=== PATIENT | female | born 1970 | race Caucasian/White ===

== ENCOUNTER 2018-06-07 20:45 | Emergency (ER) | payer OTHER ==
[~2018-06-07] VITALS: Ht 165.1 cm; Wt 98.9 kg
--- OUTSIDE RECORDS SUMMARY | ~2018-06-07 | XMS | Encounter Summary ---
Demographics + + + | Address | [address] | | | [place] [address] | + + + | Home Phone | | + + + | Preferred Language | Unknown | + + + | Marital Status | Unknown | + + + | Christianity Affiliation | Unknown | + + + | Race | Unknown | + + + | Ethnic Group | Unknown | + + + Author + + + | Author | [facility] | + + + | Organization | [facility] | + + + | Address | Unknown | + + + | Phone | Unavailable | + + + Support + + +---------+ + | Name | Relationship | Address | Phone | + + +---------+ + | Tereso Dominguez | ECON | Unknown | | + + +---------+ + | Daniel Ken | ECON | Unknown | | + + +---------+ + | Serina Ken | ECON | Unknown | | + + +---------+ + Care Team Providers + +------+ + | Care Whey Department Operator Name | Role | Phone | + +------+ + | William Starr MD | PCP | | + +------+ + Reason for Visit MRI/CAT Scan (Routine) + +--------+ + + + + | Status | Reason | Specialty | Diagnoses / | Referred By | Referred To | | | | | Procedures | Contact | Contact | + +--------+ + + + + | Pending | | Radiology | Diagnoses | See, | | | Review | | | Pain | Medical | | | | | | Procedures | Record | | | | | | MRI lumbar | | | | | | | spine with | | | | | | | and without | | | | | | | contrast | | | + +--------+ + + + + Encounter Details +--------+ + + + + | Date | Type | Department | Care Team | Description | +--------+ + + + + | 06/02/ | Hospital | [facility] | See, Medical | Pain | | 2018 | Encounter | [facility] | Record | | | | | RADIOLOGY [address] | | | | | [address] | | | | | | [place] [address] | | | | | | [phone] | | | +--------+ + + + + Social History + +-------+ +--------+------+ | Tobacco Use | Types | Packs/Day | Years | Date | | | | | Used | | + +-------+ +--------+------+ | Never Smoker | | | | | + +-------+ +--------+------+ + +---+---+---+ | Smokeless Tobacco: | | | | | Never Used | | | | + +---+---+---+ + + +---------+ + | Alcohol Use | Drinks/We | oz/Week | Comments | | | ek | | | + + +---------+ + | Yes | | | social | + + +---------+ + + + + | Sex Assigned at | Date Recorded | | | | + + + | Not on file | | + + + as of this encounter Medications at Time of Discharge + + +---------+---------+ + + | Medication | Sig. | Disp. | Refills | Start | End Date | | | | | | Date | | + + +---------+---------+ + + | celecoxib | Take 1 capsule by | 40 | 3 | 04/03/20 | | | (CELEBREX) 100 MG | mouth 2 (two) times | capsule | | 18 | | | capsuleIndications: | daily. | | | | | | Multiple sclerosis | | | | | | | (HCC) | | | | | | + + +---------+---------+ + + | Cholecalciferol | Take 2,000 Units by | | | | | | (VITAMIN D) 2000 | mouth daily. | | | | | | UNIT tablet | | | | | | + + +---------+---------+ + + | glatiramer acetate | INJECT 1 SYRINGE | 12 | 5 | 04/03/20 | | | (COPAXONE) 40 MG/ML | (40MG) | Syringe | | 18 | | | | SUBCUTANEOUSLY THREE | | | | | | injectionIndications | TIMES PER WEEK | | | | | | : Multiple sclerosis | -REFRIGERATE DO NOT | | | | | | ([facility]) | FREEZE | | | | | + + +---------+---------+ + + | levothyroxine | Take 25 mcg by mouth | | | 06/19/20 | | | (SYNTHROID) 25 MCG | daily. | | | 17 | | | tablet | | | | | | + + +---------+---------+ + + | losartan (COZAAR) | Take 25 mg by mouth | | | 06/29/20 | | | 25 MG tablet | daily. | | | 17 | | + + +---------+---------+ + + | omeprazole | Take 1 capsule by | 30 | 5 | 05/28/20 | | | (PRILOSEC) 20 MG | mouth every morning | capsule | | 18 | 9 | | capsule | before breakfast. | | | | | + + +---------+---------+ + + | ondansetron | Take 4 mg by mouth | | | | | | (ZOFRAN) 4 MG tablet | as needed for | | | | | | | Nausea. | | | | | + + +---------+---------+ + + | simvastatin | Take 20 mg by mouth | | | 12/22/19 | | | (ZOCOR) 20 MG tablet | daily. | | | 15 | | + + +---------+---------+ + + | tiZANidine | take 1 tablet by | 60 | 5 | 01/29/20 | | | (ZANAFLEX) 4 MG | mouth twice a day | tablet | | 18 | | | tablet | | | | | | + + +---------+---------+ + + | traZODone | Take 1 tablet by | 30 | 5 | 05/28/20 | | | (DESYREL) 50 MG | mouth nightly for 30 | tablet | | 18 | 8 | | tablet | days. | | | | | + + +---------+---------+ + + as of this encounter Plan of Treatment +--------+---------+ + + + | Date | Type | Specialty | Care Team | Description | +--------+---------+ + + + | 12/08/ | Office | Neurology | Robel John, | | | 2019 | Visit | | MD Ben Dominguez | | | | | | [place] | | | | | | [address] | | | | | | | | +--------+---------+ + + + as of this encounter Procedures + +--------+ + + + | Procedure Name | Priori | Date/Time | Associated Diagnosis | Comments | | | ty | | | | + +--------+ + + + | MRI LUMBAR SPINE W | Routin | 05/07/2018 | Pain | Results for this | | WO CONTRAST | e | 10:44 PM | | procedure are in the | | | | PDT | | results section. | + +--------+ + + + in this encounter Results MRI lumbar spine with and without contrast (05/07/2018 10:44 PM) + + + | Narrative | Performed At | + + + | This is a non-reportable procedure without a radiologist report and | [facility] | | is used for image storage only | RADIOLOGY | + + + + + + + + | Performing | Address | City/State/Zipcode | Phone Number | | Organization | | | | + + + + + | [facility] | [address] | [place] [address] | | + + + + + in this encounter Visit Diagnoses + + | Diagnosis | + + | Pain | + + | Generalized pain | + +"
--- OUTSIDE RECORDS SUMMARY | ~2018-06-07 | XMS | Encounter Summary ---
Demographics + + + | Address | [address] | | | [place] [address] | + + + | Home Phone | | + + + | Preferred Language | Unknown | + + + | Marital Status | Unknown | + + + | Restorationism Affiliation | Unknown | + + + | Race | Unknown | + + + | Ethnic Group | Unknown | + + + Author + + + | Author | [facility] | + + + | Organization | [facility] | + + + | Address | [...] Team Providers + +------+ + | Care Repossession Agent Name | Role | Phone | + +------+ + | William Starr MD | PCP | | + +------+ + Reason for Visit +--------+ + | Reason | Comments | +--------+ + | Other | Scheduling | +--------+ + Encounter Details +--------+ + + + + | Date | Type | Department | Care Team | Description | +--------+ + + + + | 03/31/ | Telephone | Jerry | Deandre Leonardo, | Other (Scheduling) | | 2018 | | [facility] | [place] | | | | | [address] | | | | | | [place], [place] | | | | | | [address] | | | | | | [phone] | | | +--------+ + + + [...] + + + as of this encounter Plan of Treatment +--------+---------+ + + + | Date | Type | Specialty | Care Team | Description | +--------+---------+ + + + | 12/08/ | Office | Neurology | Robel John, | | | 2019 | Visit | | MD Ben Dominguez | | | | | | [place] | | | | | | [address] | | | | | | | | +--------+---------+ + + + as of this encounter Visit Diagnoses Not on filein this encounter"
--- OUTSIDE RECORDS SUMMARY | ~2018-06-07 | XMS | Encounter Summary ---
Demographics + + + | Address | [address] | | | [place] [address] | + + + | Home Phone | | + + + | Preferred Language | Unknown | + + + | Marital Status | Unknown | + + + | Muslim Affiliation | Unknown | + + + | Race | Unknown | + + + | Ethnic Group | Unknown | + + + Author + + + | Author | [facility] | + + + | Organization | [facility] | + + + | Address | [...] Team Providers + +------+ + | Care Acoustical Installer Name | Role | Phone | + +------+ + | William Starr MD | PCP | | + +------+ + Reason for Referral MRI/CAT Scan (Routine) + +--------+ + + + + | Status | Reason | Specialty | Diagnoses / | Referred By | Referred To | | | | | Procedures | Contact | Contact | + +--------+ + + + + | Authorized | | | Diagnoses | [address] | [address] | | | | | Multiple | MD Robel | [facility] | | | | | sclerosis | [address] | | | | | ([facility]) | [address]als | [address] | | | | | Procedures | Drive | [place], [place] | | | | | MRI brain | [place], [place] | [address] | | | | | with and | [address] | Phone: | | | | | without | Phone: | [phone] | | | | | contrast | [phone] | Fax: | | | | | | Fax: | [phone] | | | | | | [phone] | | + +--------+ + + + + Reason for Visit + + + | Reason | Comments | + + + | Follow-up | F/U MS concerning symptoms to patient | + + + Consult and Treat (Routine) + + + + + + + | Status | Reason | Specialty | Diagnoses / | Referred By | Referred To | | | | | Procedures | Contact | Contact | + + + + + + + | Authorized | Continuity | Neurology | Diagnoses | Self, | [place], | | | of Care | | Follow up | Referred | MONCHO Guy | | | | | | Phone: | [facility] | | | | | | [phone] | Drive | | | | | | Fax: | [place] | | | | | | [phone] | [address] Phone: | | | | | | | [phone] | | | | | | | Fax: | | | | | | | [phone] | + + + + + + + Encounter Details +--------+---------+ + + + | Date | Type | Department | Care Team | Description | +--------+---------+ + + + | 04/03/ | Office | [facility] | Roble John, | Multiple sclerosis | | 2018 | Visit | [facility] | [address] | ([facility]) (Primary Dx); | | | | [address] | Drive [place], [place] | Other fatigue | | | | [place], [place] | [address] | | | | | [address] | | | | | | [phone] | | | +--------+---------+ + + + Social History + +-------+ [...] + + + as of this encounter Last Filed Vital Signs + + + + | Vital Sign | Reading | Time Taken | + + + + | Blood Pressure | 137/76 | 04/03/2018 11:32 AM PDT | + + + + | Pulse | 109 | 04/03/2018 11:32 AM PDT | + + + + | Temperature | - | - | + + + + | Respiratory Rate | - | - | + + + + | Oxygen Saturation | 98% | 04/03/2018 11:32 AM PDT | + + + + | Inhaled Oxygen | - | - | | Concentration | | | + + + + | Weight | 106.1 kg (234 lb) | 04/03/2018 11:32 AM PDT | + + + + | Height | 167.6 cm (5' 6") | 04/03/2018 11:32 AM PDT | + + + + | Body Mass Index | 37.77 | 04/03/2018 11:32 AM PDT | + + + + in this encounter Progress Notes Robel John MD - 04/03/2018 11:15 AM PDTFormatting of this note may be different from the original. Subjective: Patient ID: Daisy Dominguez is a 48 y.o. female. HPI The following portions of the patient's history were reviewed and updated as appropriate an d is available elsewhere in the record: allergies, current medications, past family history, past medical history, past social history, past surgical history and problem list. Daisy is a pleasant 48 yo woman returns today for a follow up visit for her multiple scler osis. The patient was diagnosed with multiple sclerosis in June 2004 with predominantly involv ement of the spinal cord. The patient has had multiple neurological symptoms with paresthesi a and weakness of the lower extremities and intermittent bladder difficulty with urgency as well as incontinence. The patient has been treated with Copaxone with no significant side ef fects except some injection site reaction. She had stomach reduction surgery in October. She noted significant weight reduction but has fluctuation of weight over the years. She is on vitamin B12 supplement. She has significant chronic fatigue. She has benefit from Nuvigil for her fatigue in the pa st, however her insurance denied coverage. She had more side effects with methylphenidate. 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 MRI studies: MRI of the brain and cervical spine dated on 01/27/09. She has abnormal signal at C2 area. O verall brain lesion burden is mild. Repeated MRI brain and cervical spine at [facility] 09/02/13 showed mild lesion b urden of her brain, no new or enhancing lesions. Her cervical spine MRI 09/02/13 reported no spinal cord lesion. Again noted C5 hemangioma, unchanged. Broad based disc bulge new at C5-6, causes mild steven tral canal narrowing. Minimal central disc bulge at C6-7 and C7-T1 with no evidence neural compromise. MRI cervical spine [facility] 08/19/15 showed stable multiple sclerosis lesion at C2 area (unchanged from prior studies). She has mild spondylosis with bulging disk at C5-6 with aravind y slight effacement of cord and left neural foramen mildly narrowed. The remainder is repor luis normal. MRI brain [facility] 08/2015 reported stable multiple sclerosis lesion burden without en hancement. Repeated MRI of the brain, cervical spine and thoracic spine on 06/27/[address] [facility] were quite stable, no new lesions. She does have mild lesion burden in the brain and stable cervical cord lesion. She does have spondylosis reversal of normal cervical curvature. I reviewed MRI studies and visualized multiple images with the patient. Interval history: Over the last two weeks, she reports significant fatigue, overall feeling heavy and difficu lty function. She had difficulty function at work. She denies any signs of infection, no new medications, denies significant stress although she admits stressful work and care for her father. She denies change of her sleep pattern. She was told no evidence of BLAZE by her primary care provider/physician. No evidence of anem ia. She had good response in the past with a course of Solumedrol IV1 gm per day for three days . She denies side effects. GLUCOSE Date Value Ref Range Status 07/08/2017 91 65 - 99 mg/dL Final BUN Date Value Ref Range Status 07/08/2017 16 8 - 25 mg/dL Final CREATININE Date Value Ref Range Status 07/08/2017 0.9 0.50 - 1.00 mg/dL Final BUN/CREAT Date Value Ref Range Status 07/08/2017 18 Final TOTAL PROTEIN Date Value Ref Range Status 07/08/2017 7.2 6.3 - 8.2 g/dL Final GLOBULIN Date Value Ref Range Status 07/08/2017 3.5 1.3 - 4.9 g/dL Final TBIL Date Value Ref Range Status 07/08/2017 0.3 0.1 - 1.5 mg/dL Final ALT Date Value Ref Range Status 07/08/2017 28 10 - 65 U/L Final AST Date Value Ref Range Status 07/08/2017 20 10 - 45 U/L Final SODIUM Date Value Ref Range Status 07/08/2017 138 135 - 145 mmol/L Final POTASSIUM Date Value Ref Range Status 07/08/2017 4.1 3.5 - 4.9 mmol/L Final CHLORIDE Date Value Ref Range Status 07/08/2017 103 99 - 109 mmol/L Final CO2 Date Value Ref Range Status 07/08/2017 27 23 - 32 mmol/L Final ANION GAP AGAP Date Value Ref Range Status 07/08/2017 12 5 - 20 mmol/L Final Lab Results Component Value Date ALP 71 07/08/2017 Lab Results Component Value Date AST 20 07/08/2017 Lab Results Component Value Date ALT 28 07/08/2017 The following portions of the patient's history were reviewed and updated as appropriate: a llergies, current medications, past family history, past medical history, past social histor y, past surgical history and problem list. Review of Systems Constitutional: Positive for fatigue. Musculoskeletal: Positive for arthralgias. Objective: Neurologic Exam Mental Status Oriented to person, place, and time. Level of consciousness: alert Knowledge: good. Cranial Nerves CN II Visual acuity: normal with correction (20/30 OU with correction) Right visual field deficit: none Left visual field deficit: none CN III, IV, Pupils are equal, round, and reactive to light. Extraocular motions are normal. CN VII Facial expression full, symmetric. Motor Exam Muscle bulk: normal Overall muscle tone: normal Strength Strength 5/5 except as noted. Right deltoid: 4/5 Left deltoid: 4/5She complains of neck pain and pain related weakness of her proximal arms, mild weakness of lower extremities 5- due to profound fatigue. Gait, Coordination, and Reflexes Gait Gait: normal Coordination Tandem walking coordination: abnormal Tremor Resting tremor: absent Intention tremor: absent Action tremor: absent Physical Exam Constitutional: She is oriented to person, place, and time. She appears well-developed and well-nourished. HENT: Head: Normocephalic and atraumatic. Eyes: EOM are normal. Pupils are equal, round, and reactive to light. Neck: Normal range of motion. Neck supple. Musculoskeletal: Slightly limited neck turning to the left due to pain Neurological: She is oriented to person, place, and time. She has an abnormal Tandem Gait T est. Gait normal. Skin: Skin is warm. Psychiatric: She has a normal mood and affect. Her behavior is normal. Judgment and thought content normal. Vitals reviewed. Assessment and Plan: Relapsing-remitting multiple sclerosis with mild disease burden but with involvement of cer vical spinal cord. She has been on Copaxone 40 mg three times per week for disease modifyi ng agent for multiple sclerosis. Overall her multiple sclerosis has been stable on Copaxone with periodic fluctuation of her symptoms. Brain MRI 08/30/15 showed stable mild lesion burden of brain. Cervical spine MRI 08/19/15 s howed a subtle abnormal signal at C2 area, stable to prior exams. No enhancing lesions. Repeated MRI of the brain, cervical spine and thoracic spine on 06/27/[address] [facility] were quite stable, no new lesions. She does have mild lesion burden in the brain and stable cervical cord lesion. She does have spondylosis reversal of normal cervical curvature. Recently, she reports profound fatigue without clear triggers or infection which affected h er functional level, difficulty performing her regular job. She reports good benefit from st eroid treatment in the past without side effects. MRI of the brain with gadolinium, call result. Labs: CBC, CMP, TSH, vitamin B12. Solumedrol IV1 gm per day for three days. Discussed the indication and side effects and she opts to proceed with the treatment. Try to avoid excessive heat exposure to minimize worsening or fluctuation of previous neuro logical symptoms. I spent more than 50% of this visit counseling the patient about the clinical course of angus oing neurological symptoms and answering a number of questions, the patient expressed unders tanding and would like to proceed with the recommendations. Return to the clinic in 2-4 weeks, further recommendation will be discussed with the patien t after reviewing above studies, call for any new neurological changes or symptoms or questi ons. in this encounter Plan of Treatment +--------+---------+ + + + | Date | Type | Specialty | Care Team | Description | +--------+---------+ + + + | 12/08/ | Office | Neurology | Robel John, | | | 2018 | Visit | | MD Ben Dominguez | | | | | | Drive [place], [place] | | | | | | [address] | | | | | | | | +--------+---------+ + + + + +--------+ + + | Name | Priori | Associated Diagnoses | Order Schedule | | | ty | | | + +--------+ + + | MRI brain with and without | Routin | Multiple sclerosis | Expected: | | contrast | e | (HCC) | 04/04/2018, Expires: | | | | | 10/04/2018 | + +--------+ + + as of this encounter Results Vitamin B12 (04/03/2018 3:21 PM) + +-------+ + + | Component | Value | Ref Range | Performed At | + +-------+ + + | VITAMIN B12 | 447 | 254 - 1,320 pg/mL | [facility] | | | | | LABORATORY | + +-------+ + + + + | Specimen | + + | Blood | + + + + + + + | Performing | Address | City/State/Zipcode | Phone Number | | Organization | | | | + + + + + | [facility] | [address] | [place] [address] | [phone] | | LABORATORY | [address] | | | + + + + + TSH reflex (04/03/2018 3:21 PM) + +-------+ + + | Component | Value | Ref Range | Performed At | + +-------+ + + | TSH REFLEX | 2.570 | 0.450 - 5.100 | [facility] | | | | u[iU]/mL | LABORATORY | + +-------+ + + + + + + + | Performing | Address | City/State/Zipcode | Phone Number | | Organization | | | | + + + + + | [facility] | [address] | [place] [address] | [phone] | | LABORATORY | [address] | | | + + + + + Comprehensive metabolic panel (04/03/2018 3:21 PM) + + + + + | Component | Value | Ref Range | Performed At | + + + + + | SODIUM | 141 | 135 - 145 mmol/L | [facility] | | | | | LABORATORY | + + + + + | POTASSIUM | 4.6 | 3.5 - 4.9 mmol/L | [facility] | | | | | LABORATORY | + + + + + | CHLORIDE | 106 | 99 - 109 mmol/L | [facility] | | | | | LABORATORY | + + + + + | CO2 | 25 | 23 - 32 mmol/L | [facility] | | | | | LABORATORY | + + + + + | ANION GAP AGAP | 15 | 5 - 20 mmol/L | [facility] | | | | | LABORATORY | + + + + + | GLUCOSE | 95 | 65 - 99 mg/dL | [facility] | | | | | LABORATORY | + + + + + | BUN | 14 | 8 - 25 mg/dL | [facility] | | | | | LABORATORY | + + + + + | CREATININE | 1.0 | 0.50 - 1.00 mg/dL | [facility] | | | | | LABORATORY | + + + + + | BUN/CREAT | 14 | | [facility] | | | | | LABORATORY | + + + + + | CALCIUM | 9.0 | 8.5 - 10.5 mg/dL | [facility] | | | | | LABORATORY | + + + + + | TOTAL PROTEIN | 7.5 | 6.3 - 8.2 g/dL | [facility] | | | | | LABORATORY | + + + + + | Albumin | 3.9 | 3.6 - 5.0 g/dL | [facility] | | | | | LABORATORY | + + + + + | GLOBULIN | 3.6 | 1.3 - 4.9 g/dL | [facility] | | | | | LABORATORY | + + + + + | A/G | 1.1 | 1.0 - 2.4 | [facility] | | | | | LABORATORY | + + + + + | TBIL | 0.4 | 0.1 - 1.5 mg/dL | [facility] | | | | | LABORATORY | + + + + + | ALK PHOS | 77 | 35 - 115 U/L | [facility] | | | | | LABORATORY | + + + + + | AST | 23 | 10 - 45 U/L | [facility] | | | | | LABORATORY | + + + + + | ALT | 33 | 10 - 65 U/L | [facility] | | | | | LABORATORY | + + + + + | EGFR | 59 (L)Comment: GFR <60: | >60 mL/min/1.73_m2 | [facility] | | | CHRONIC KIDNEY DISEASE, | | LABORATORY | | | IF FOUND OVER A 3 MONTH | | | | | PERIOD. GFR <15: KIDNEY | | | | | FAILURE. FOR | | | | | AMERICANS, MULTIPLY THE | | | | | CALCULATED GFR BY 1.210. | | | | | This eGFR is calculated | | | | | using the MDRD IDMS | | | | | traceable equation. | | | + + + + + + + | Specimen | + + | Blood | + + + + + + + | Performing | Address | City/State/Zipcode | Phone Number | | Organization | | | | + + + + + | [facility] | [address] | [place] [address] | [phone] | | LABORATORY | [address] | | | + + + + + CBC W/Auto Diff (Reflex to Manual) (04/03/2018 3:21 PM) + + + + + | Component | Value | Ref Range | Performed At | + + + + + | WBC | 7.53 | 3.80 - 11.00 10*3/uL | [facility] | | | | | LABORATORY | + + + + + | RBC | 4.87 | 3.70 - 5.10 10*6/uL | [facility] | | | | | LABORATORY | + + + + + | HGB | 14.2 | 11.3 - 15.5 g/dL | [facility] | | | | | LABORATORY | + + + + + | HCT | 40.5 | 34.0 - 46.0 % | [facility] | | | | | LABORATORY | + + + + + | MCV | 83.0 | 80.0 - 100.0 fL | [facility] | | | | | LABORATORY | + + + + + | MCH | 29.1 | 27.0 - 34.0 pg | [facility] | | | | | LABORATORY | + + + + + | MCHC | 35.1 | 32.0 - 35.5 g/dL | [facility] | | | | | LABORATORY | + + + + + | RDW SD | 41.6 | 37 - 53 fL | [facility] | | | | | LABORATORY | + + + + + | PLT | 259 | 150 - 400 10*3/uL | [facility] | | | | | LABORATORY | + + + + + | MPV | 9.4 | fL | [facility] | | | | | LABORATORY | + + + + + | DIFF TYPE | AUTOMATED | | [facility] | | | | | LABORATORY | + + + + + | NEUTROPHILS | 52.87 | % | [facility] | | | | | LABORATORY | + + + + + | LYMPHOCYTES | 36.69 | % | [facility] | | | | | LABORATORY | + + + + + | MONOCYTES | 6.24 | % | [facility] | | | | | LABORATORY | + + + + + | EOSINOPHILS | 3.42 | % | [facility] | | | | | LABORATORY | + + + + + | BASOPHILS | 0.78 | % | [facility] | | | | | LABORATORY | + + + + + | NEUTROPHILS ABS | 3.98 | 1.90 - 7.40 10*3/uL | [facility] | | | | | LABORATORY | + + + + + | LYMPHOCYTES ABS | 2.76 | 1.00 - 3.90 10*3/uL | [facility] | | | | | LABORATORY | + + + + + | MONOCYTES ABS | 0.47 | 0.00 - 0.80 10*3/uL | [facility] | | | | | LABORATORY | + + + + + | EOSINOPHILS ABS | 0.26 | 0.00 - 0.50 10*3/uL | [facility] | | | | | LABORATORY | + + + + + | BASOPHILS ABS | 0.06 | 0.00 - 0.10 10*3/uL | [facility] | | | | | LABORATORY | + + + + + + + | Specimen | + + | Blood | + + + + + + + | Performing | Address | City/State/Zipcode | Phone Number | | Organization | | | | + + + + + | [facility] | [address] | [place] [address] | [phone] | | LABORATORY | [address] | | | + + + + + in this encounter Visit Diagnoses + + | Diagnosis | + + | Multiple sclerosis (HCC) - Primary | + + | Multiple sclerosis | + + | Other fatigue | + +
--- OUTSIDE RECORDS SUMMARY | ~2018-06-07 | XMS | Encounter Summary ---
Demographics + + + | Address | [address] | | | [place] [address] | + + + | Home Phone | | + + + | Preferred Language | Unknown | + + + | Marital Status | Unknown | + + + | Amish Affiliation | Unknown | + + + | Race | Unknown | + + + | Ethnic Group | Unknown | + + + Author + + + | Author | [facility] | + + + | Organization | [facility] | + + + | Address | [...] Team Providers + +------+ + | Care Deli Department Manager Name | Role | Phone | + [...] Other (Scheduling) | | 2018 | | [facility] | [place] | | | | | [address] | | | | | | [place], [place] | | | | | | [address] | | | | | | [phone] | | | +--------+ + + + [...] [place] | | | | | | [address] | | | | | | | | +--------+---------+ + + + as of this encounter Visit Diagnoses Not on filein this encounter"
--- OUTSIDE RECORDS SUMMARY | ~2018-06-07 | XMS | Encounter Summary ---
Demographics + + + | Address | [address] | | | [place] [address] | + + + | Home Phone | | + + + | Preferred Language | Unknown | + + + | Marital Status | Unknown | + + + | Worship Affiliation | Unknown | + + + | Race | Unknown | + + + | Ethnic Group | Unknown | + + + Author + + + | Author | [facility] | + + + | Organization | [facility] | + + + | Address | [...] Team Providers + +------+ + | Care Radial Drill Operator Name | Role | Phone | [...] | | Multiple | MD Robel | [facility] | | | | | sclerosis | [address] | | | | | ([facility]) | [address]als | [address] | | | | | Procedures | Drive | [place], [place] | | | | | MRI brain | [place], [place] | [address] | | | | | with and | [address] | Phone: | | | | | without | Phone: | [phone] | | | | | contrast | [phone] | Fax: | | | | | | Fax: | [phone] | | | | | | [phone] | | + +--------+ + + + [...] Phone: | [facility] | | | | | | [phone] | Drive | | | | | | Fax: | [place] | | | | | | [phone] | [address] Phone: | | | | | | | [phone] | | | | | | | Fax: | | | | | | | [phone] | + + + + + + + Encounter Details +--------+---------+ + + + | Date | Type | Department | Care Team | Description | +--------+---------+ + + + | 04/03/ | Office | [facility] | Robel John, | Multiple sclerosis | | 2018 | Visit | [facility] | [address] | ([facility]) (Primary Dx); | | | | [address] | Drive [place], [place] | Other fatigue | | | | [place], [place] | [address] | | | | | [address] | | | | | | [phone] | | | +--------+---------+ + + + [...] effects with methylphenidate. 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 MRI studies: MRI of the brain and cervical spine dated on 01/27/09. She has abnormal signal at C2 area. O verall brain lesion burden is mild. Repeated MRI brain and cervical spine at [facility] 09/02/13 showed mild lesion b urden of her brain, no new or enhancing lesions. Her cervical spine MRI 09/02/13 reported no spinal cord lesion. Again noted C5 hemangioma, unchanged. Broad based disc bulge new at C5-6, causes mild steven tral canal narrowing. Minimal central disc bulge at C6-7 and C7-T1 with no evidence neural compromise. MRI cervical spine [facility] 08/19/15 showed stable multiple sclerosis lesion at C2 area (unchanged from prior studies). She has mild spondylosis with bulging disk at C5-6 with aravind y slight effacement of cord and left neural foramen mildly narrowed. The remainder is repor luis normal. MRI brain [facility] 08/2015 reported stable multiple sclerosis lesion burden without en hancement. Repeated MRI of the brain, cervical spine and thoracic spine on 06/27/2017 at [facility] were quite stable, no new lesions. [...] spine and thoracic spine on 06/27/2017 at [facility] were quite stable, no new lesions. [...] | | | | | | Drive [place], [place] | | | | | | [address] | | | | | | | [...] + + + | [facility] | [address] | [place] [address] | [phone] | | LABORATORY | [address] | | [...] + + + | [facility] | [address] | [place] [address] | [phone] | | LABORATORY | [address]vd[address] | | [...] (L)Comment: GFR <60: | >60 mL/min/1.73_m2 | [facility] | | | CHRONIC KIDNEY [...] + + + | [facility] | [address] | [place] [address] | [phone] | | LABORATORY | [address] | | [...] | + + + + + | [facility] | [address] | [place] [address] | [phone] | | LABORATORY | [address]vd[address] | | | + + + + + in this encounter Visit Diagnoses + + | Diagnosis | + + | Multiple sclerosis (HCC) - Primary | + + | Multiple sclerosis | + + | Other fatigue | + +
--- OUTSIDE RECORDS SUMMARY | ~2018-06-07 | XMS | Encounter Summary ---
Demographics + + + | Address | [address] | | | [place] [address] | + + + | Home Phone | | + + + | Preferred Language | Unknown | + + + | Marital Status | Unknown | + + + | Faith Affiliation | Unknown | + + + | Race | Unknown | + + + | Ethnic Group | Unknown | + + + Author + + + | Author | [facility] | + + + | Organization | [facility] | + + + | Address | [...] Team Providers + +------+ + | Care Human Resource Officer Name | Role | Phone | + +------+ + | William Starr MD | PCP | | + +------+ + Encounter Details +--------+ + + + + | Date | Type | Department | Care Team | Description | +--------+ + + + + | 04/28/ | Telephone | [facility] | Faizan Dimple | | | 2017 | | [facility] | PHAN Rodriguez | | | | | [address] | | | | | | [place], [place] | | | | | | [address] | | | | | | [phone] | | | +--------+ + + + [...] | | | | | | [place] | | | | | | [address] | | | | | | | | +--------+---------+ + + + as of this encounter Visit Diagnoses Not on filein this encounter"
--- OUTSIDE RECORDS SUMMARY | ~2018-06-07 | XMS | Encounter Summary ---
Demographics + + + | Address | [address] | | | [place] [address] | + + + | Home Phone | | + + + | Preferred Language | Unknown | + + + | Marital Status | | + + + | Congregational Affiliation | Unknown | + + + | Race | Unknown | + + + | Ethnic Group | Unknown | + + + Author + + + | Author | [facility] | | | and [place] | + + + | Organization | [facility] | | | and [place] | + + + | Address | Unknown | + + + | Phone | Unavailable | + + + Support + + +---------+ + | Name | Relationship | Address | Phone | + + +---------+ + | Tereso Dominguez | ECON | Unknown | | + + +---------+ + Care Team Providers + +------+ + | Care Big Machine Consultant Name | Role | Phone | + +------+ + | William Starr MD | PCP | | + +------+ + Reason for Visit + + + | Reason | Comments | + + + | Neck Pain | | + + + Evaluate & Treat (Routine) +--------+--------+ + + + + | Status | Reason | Specialty | Diagnoses / | Referred By | Referred To | | | | | Procedures | Contact | Contact | +--------+--------+ + + + + | Closed | | Physical | Diagnoses | Matty, | [place]ana[place], | | | | Medicine and | Cervical | William Haywood, | Cj Fatima MD | | | | Rehabilitatio | radiculopath | [address] | [address] | | | | n | y | [address] | [address] [place] | | | | | | [place], | [place], [place] | | | | | | [place] [address] | [address] Phone: | | | | | | Phone: | [phone] | | | | | | [phone] | Fax: | | | | | | Fax: | [phone] | | | | | | [phone] | | +--------+--------+ + + + + Encounter Details +--------+---------+ + + + | Date | Type | Department | Care Team | Description | +--------+---------+ + + + | 04/09/ | Office | [facility] | Nohemi, | Neck pain; | | 2017 | Visit | PHYSIATRY [address] | [address] | Myofascial pain on | | | | [place], | [address] [place] | right side | | | | [place] [address] | [place] [address] | | | | | [phone] | [phone] | | | | | | | [...] +---------+ + | Yes | | | Rare | + + +---------+ + + + + | Sex Assigned at | Date Recorded | | | | + + + | Not on file | | + + + as of this encounter Last Filed Vital Signs + + + + | Vital Sign | Reading | Time Taken | + + + + | Blood Pressure | 118/84 | 04/09/2018 1125 PDT | + + + + | Pulse | 110 | 04/09/2018 1125 PDT | + + + + | Temperature | - | - | + + + + | Respiratory Rate | - | - | + + + + | Oxygen Saturation | - | - | + + + + | Inhaled Oxygen | - | - | | Concentration | | | + + + + | Weight | 104.3 kg (230 lb) | 04/09/20181124 PDT | + + + + | Height | 165.1 cm (5' 5") | 04/09/20181124 PDT | + + + + | Body Mass Index | 38.27 | 04/09/2018 1125 PDT | + + + + in this encounter Instructions Patient Instructions - Lizeth Song PA-C - 04/09/2018 1120 PDTCheck with neurologis t on Celebrex and why only 20/30 days of the month Can always try other neuropathic pain medications like Amitriprytline, Carbamezapine, Gabap entin - Ice the area as needed 20 minutes per hour. Multiple times as needed over the next few d ays. - Watch for signs of infection (redness around injection site, swelling, fever) - No strenuous activity for 24-48 hours after the procedure. - Please call the office with questions or concerns. in this encounter Progress Notes Lizeth Song PA-C - 04/09/2018 1120 PDTFormatting of this note may be different fro m the original. CHIEF COMPLAINT: Chief Complaint Patient presents with Neck Pain HISTORY OF PRESENT ILLNESS: The patient is a 48 y.o. female with the complaint of neck marya n that began in the last 8 months. The patient states that the symptoms began out of the bl ue, starting mild but now gradually worsening and persistent. The patient rates her pain an d discomfort as moderate. Since the symptoms began, she has noticed that symptoms have been constant on a daily basis. She describes the pain as a aching, dull, numbing, pulsating, th robbing and tingling feeling. The patient also describes arm symptoms down both sides predo minantly the right arm and hand. Daisy Dominguez reports having numbness/pain in the right arm and hand. The arm symptoms account for at least greater than or equal to 25% of her sympto ms. Her pain travels from her neck. Daisy Dominguez reports she does have MS and is not sure i f symptoms are related to this or her neck. The patient does report loss of strength in her right arm and hand. She does not indicate a history of loss of fine motor function. The patient does report having some bladder incontinence that started after being diagnosed with MS. The patient does not reports saddle paresthesias. Her symptoms improve with rest. Her symptoms worsen with walking, running, kneeling, bendi ng, and twisting Treatments for these complaints have included PT, massage, narcotic and anti-inflammatory medications, and muscle relaxers. She does have MS and is followed by [facility]. Destiny segura just received a steroid infusion last week. Patient's medications, allergies, past medical, surgical, social and family histories were reviewed and updated as appropriate. PAST MEDICAL HISTORY: Past Medical History: Diagnosis Date Arthritis Back pain Cervical radiculopathy Cervicalgia Dental implant pain, initial encounter Depression Disorder of tooth development, unspecified Effusion of joint of lower leg Exposure to Coccidioides immitis Exposure to TB Herpes High cholesterol History of multiple sclerosis Hypothyroidism Immunocompromised (HCC) Infection of implant site (HCC) Knee pain, right Lentigo Milia Mixed dyslipidemia Morbid obesity (HCC) Multiple sclerosis (HCC) Myofascial pain on right side 04/09/2018 Nausea Neck pain 04/09/2018 Poor dentition Relapsing remitting multiple sclerosis (HCC) Sebaceous hyperplasia Seborrheic keratosis Skin lesion Sleep disturbance Telangiectasia Weakness of both legs PAST SURGICAL HISTORY: Past Surgical History: Procedure Laterality Date BACK SURGERY [address] Gaviria HYSTERECTOMY 1997 KNEE SURGERY 2013 OVARIAN CYST SURGERY Left 2013 SLEEVE GASTROPLASTY 2008 THROAT SURGERY 2004 TONSILLECTOMY AND ADENOIDECTOMY 1985 CURRENT MEDICATIONS: Current Outpatient Prescriptions Medication Sig Dispense Refill celecoxib (CELEBREX) 100 mg capsule Take 100 mg by mouth 2 times daily. cholecalciferol (VITAMIN D-3) 2000 units TABS Take 2,000 Units by mouth Daily. diphenhydrAMINE (BENADRYL) 25 MG capsule Take 25 mg by mouth every 8 hours as needed. DULoxetine (CYMBALTA) [address] capsule Take 60 mg by mouth Daily. levothyroxine (SYNTHROID) 25 mcg tablet Take 25 mcg by mouth every morning (before marilyn kfast). modafinil (PROVIGIL) 100 MG tablet Take 100 mg by mouth Daily. omeprazole (PRILOSEC) 20 mg capsule Take 20 mg by mouth every morning (before breakfast ). ondansetron (ZOFRAN) 8 MG tablet Take 8 mg by mouth Twice daily as needed for Nausea. tiZANidine (ZANAFLEX) 2 MG tablet Take 4 mg by mouth Daily. traZODone (DESYREL) 50 mg tablet Take 50 mg by mouth nightly as needed. Turmeric 500 MG CAPS Take by mouth. No current facility-administered medications for this visit. ALLERGIES: Allergies Allergen Reactions Chaim Inhibitors Swelling and Other (See Comments) Throat "lesions" Oxycodone Itching SOCIAL HISTORY: The patient reports that she has never smoked. She has never used smokeless tobacco. She r eports that she drinks alcohol. She reports that she does not use drugs. FAMILY HISTORY: Family History Problem Relation Age of Onset Rheum arthritis Mother Diabetes Mother Hypertension Mother Kidney cancer Mother Arthritis Father Other (see comment) Father Multiple surgeries Suicide Sister Early Sister Suicide Heart disease Other Kidney disease Other REVIEW OF SYSTEMS: GENERALLY: No fever, chills, +night sweats, +fatigue, no weight loss, +weight gain. EYES: +vision changes. +Eye glasses EARS, NOSE, AND THROAT: No hearing loss, no ear pain, no nosebleeds, no toothache, no gum p roblems, no significant snoring or sleep apnea, no seasonal allergies, no difficulty swallow ing, no hoarseness. NEUROMUSCULAR: Please see the review of systems discussed above in the history of present illness. In addition, the patient has no dizziness, no blackouts, +headaches. +Numbness/marya n of arms +Weakness +pain in neck +pain in back PSYCHIATRIC: No depression, +difficulty sleeping, no anxiety, no memory loss. CARDIOVASCULAR: No chest pain, no palpitations, +swollen ankles. PULMONARY: No shortness of breath, no cough. GASTROINTESTINAL: No poor appetite, no diarrhea, no nausea or vomiting, no bowel incontine nce, no hemorrhoids, no constipation, no abdominal pain. GENITOURINARY: No urinary difficulty and +incontinence. SKIN: No rashes. HEMATOLOGIC/LYMPHATIC: No enlarged lymph nodes or swollen glands. ENDOCRINE: No diabetes, no thyroid disease, no osteopenia or osteoporosis, no breast drain age. RHEUMATOLOGIC: No osteoarthritis, no rheumatoid arthritis. PHYSICAL EXAMINATION: Vitals: 04/09/18 1125 BP: 118/84 Pulse: 110 PainSc: 4 PainLoc: Neck Body mass index is 38.27 kg/m. GENERAL: The patient is well developed and well nourished. She does not appear uncomfortab le when seated. HEENT: HEAD/FACE: EYES: EARS: NASOPHARNYX: OROPHARNYX: Normocephalic and atraumatic. There are no areas of recent trauma. Normal sclerae without icterus. No drainage or tenderness. Clear without drainage. Clear without erythema. SKIN Limited skin exam shows no significant rashes or lesions. There are not scars in the cervical region. CHEST: The patient is in no acute respiratory distress with unlabored respirations. HEART: There is not lower extremity edema. ABDOMEN: Soft, non-tender, non-distended, and without palpable masses. The patient is obe se. MUSCULOSKELETAL: She has no tenderness over the midline cervical spine, rotation to the rig ht causes pain over the left side, rotation to the left causes pain over the right side, as well with lateral bending. She has negative Spurling sign. Range of motion testing of the cervical spine was unremarkable. Spurling sign was negative. Shoulder examination shows well preserved range of motion with external rotation, internal rotation and abduction. Impingement testing was Negative. There was no tenderness over th e bicipital groove or over the AC joint. Speed's test was Negative. Empty can test was Nega tive. Strength testing, including strength testing of the infraspinatus, supraspinatus an d subscapularis, in bilateral upper extremities showed 5/5 strength with no focal weakness. NEUROLOGIC: The patient is awake, alert, and oriented to time, place, person. She follows simple and complex commands. Her speech is fluent. She comprehends speech well. She has no apparent deficits with short or care home memory. She has appropriate fund of knowledge Cranial nerves 2-12 appear grossly intact. Coordination: Finger/Nose and heel/cochran is intact Rapid Alternating Movement in UE and LE is intact. Sensory exam does not show diminished sensation to light touch in the upper and lower extr emities. RADIOGRAPHIC REVIEW: The patient's imaging was reviewed in detail with the patient today during the visit. Cervi leigha MRI from 2018 is negative for any high grade nerve root impingement. ASSESSMENT: Encounter Diagnoses Name Primary? Neck pain Myofascial pain on right side PLAN: 1. Discussed symptoms in detail today, reviewed her cervical MRI. She has NO high grade n erve root impingement to explain the neck pain, paresthesias into the right arm. Most likel y a MS flare up along with myofascial pain over the trapezius, levator scapula and rhomboids . I do not think she would benefit from any steroid epidural injection, not necessary for a neurosurgery consult. 2. Discussed myofascial pain in detail and perform trigger points in office today. After the patient gave consent for the procedure the trigger point injections were performe d using sterile no-touch technique and a 25 gauge 1.5 inch needle. The areas were prepped w ith alcohol. The needle was then advanced into 12 different trigger points and a total of 6 mL each of 0.5% bupivicaine and 1% lidocaine was injected divided between the 12 sites. T he patient was instructed to ice the areas and to watch for signs of infection. The patient experienced a vasovagal response and was transferred to the prone position on t he exam chair with legs elevated, she was given water and a cold wash cloth. She was monitor ed for approximately 10 minutes. She improved from her vasovagal reaction. She was instruct ed to ice the area for 15-20 minutes several times over the next few days and to watch for a ny signs of infection. 3. Discussed with her, if the trigger point injections do help, she can consider accupuntu re. Trigger points can be done very 2 week if need to. We discussed other neuropathic pain medications can be tried such as cyclobenzaprine, amitriptyline or gabapentin. ELECTRONICALLY SIGNED BY: Lizeth Song PA-C, 04/09/2018 CC: Janes this encounter Plan of Treatment Not on fileas of this encounter Visit Diagnoses + + | Diagnosis | + + | Neck pain | + + | Cervicalgia | + + | Myofascial pain on right side | + + | Mylagia and myositis, unspecified | + + Administered Medications + + + +-------+------+ + | Medication Order | MAR | Action | Dose | Rate | Site | | | Action | Date | | | | + + + +-------+------+ + | lidocaine (PF) 1% injection 5 | Given by | | 5 mLs | | Other | | mL 5 mL, Intradermal, ONCE, Wed | Other | 8 12:25 | | | (Comment | | 04/09/18 at 1230, For 1 dose | | PDT | | | ) | + + + +-------+------+ + +---+---+ | | | +---+---+ + +-------+ +-------+---+---+ | ropivacaine (NAROPIN) 5 mg/mL | Given | | 5 mLs | | | | (0.5%) injection 5 mL 5 mL, | | 8 12:27 | | | | | Infiltration, ONCE, 04/09/18 | | PDT | | | | | at 1230, For 1 dose | | | | | | + +-------+ +-------+---+---+ +---+---+ | | | +---+---+ in this encounter
--- OUTSIDE RECORDS SUMMARY | ~2018-06-07 | XMS | Clinical Summary ---
Demographics + + + | Address | [address] | | | [place] [address] | + + + | Home Phone | | + + + | Preferred Language | Unknown | + + + | Marital Status | | + + + | Rastafari Affiliation | Unknown | + + + | Race | Unknown | + + + | Ethnic Group | Unknown | + + + Author + + + | Author | [facility] | | | and [place] | + + + | Organization | [facility] | | | and [place] | [...] Team Providers + +------+ + | Care Professional Services Consultant Name | Role | Phone | + +------+ + | William Starr MD | PP | | + +------+ + Allergies + + + + + + | Active Allergy | Reactions | Severity | Noted | Comments | | | | | Date | | + + + + + + | Chaim Inhibitors | Swelling, Other (See | Medium | 05/03/20 | Throat "lesions" | | | Comments) | | 11 | | + + + + + + | Oxycodone | Itching | Medium | 07/08/20 | | | | | | 17 | | + + + + + + Current Medications + + +-------+---------+------+------+-------+ | Prescription | Sig. | Disp. | Refills | Star | End | Statu | | | | | | t | Date | s | | | | | | Date | | | + + +-------+---------+------+------+-------+ | omeprazole | Take 20 mg by mouth | | | 11/14 | 11/14 | Activ | | (PRILOSEC) 20 mg | every morning | | | /20 | 220 | e | | capsule | (before breakfast). | | | 18 | 19 | | + + +-------+---------+------+------+-------+ | cholecalciferol | Take 2,000 Units by | | | | | Activ | | (VITAMIN D-3) 2000 | mouth Daily. | | | | | e | | units TABS | | | | | | | + + +-------+---------+------+------+-------+ | traZODone | Take 50 mg by mouth | | | 03 | | Activ | | (DESYREL) 50 mg | nightly as needed. | | | 11/05 | | e | | tablet | | | | 18 | | | + + +-------+---------+------+------+-------+ | DULoxetine | Take 60 mg by mouth | | | 12/ | | Activ | | (CYMBALTA) [address] | Daily. | | | 04/04 | | e | | capsule | | | | 15 | | | + + +-------+---------+------+------+-------+ | levothyroxine | Take 25 mcg by mouth | | | 10/0 | | Activ | | (SYNTHROID) 25 mcg | every morning | | | 420 | | e | | tablet | (before breakfast). | | | 17 | | | + + +-------+---------+------+------+-------+ | ondansetron | Take 8 mg by mouth | | | | | Activ | | (ZOFRAN) 8 MG tablet | Twice daily as | | | | | e | | | needed for Nausea. | | | | | | + + +-------+---------+------+------+-------+ | diphenhydrAMINE | Take 25 mg by mouth | | | | | Activ | | (BENADRYL) 25 MG | every 8 hours as | | | | | e | | capsule | needed. | | | | | | + + +-------+---------+------+------+-------+ | tiZANidine | Take 4 mg by mouth | | | | | Activ | | (ZANAFLEX) 2 MG | Daily. | | | | | e | | tablet | | | | | | | + + +-------+---------+------+------+-------+ | Turmeric 500 MG | Take by mouth. | | | | | Activ | | CAPS | | | | | | e | + + +-------+---------+------+------+-------+ | celecoxib | Take 100 mg by mouth | | | | | Activ | | (CELEBREX) 100 mg | 2 times daily. | | | | | e | | capsule | | | | | | | + + +-------+---------+------+------+-------+ | modafinil | Take 100 mg by mouth | | | | | Activ | | (PROVIGIL) 100 MG | Daily. | | | | | e | | tablet | | | | | | | + + +-------+---------+------+------+-------+ Active Problems + + + | Problem | Noted Date | + + + | Neck pain | 04/09/2018 | + + + | Myofascial pain on right side | 04/09/2018 | + + + | Multiple sclerosis (HCC) | 05/03/2011 | + + + Encounters +--------+ + + + + | Date | Type | Specialty | Care Team | Description | +--------+ + + + + | 04/09/ | Office | | Nohemi | Neck pain; | | 2017 | Visit | | [facility] | Myofascial pain on | | | | | | right side | +--------+ + + + + | 04/07/ | Abstract | | Nohemi, | | | 2017 | | | [place] [place] | | +--------+ + + + + from Last 3 Months Family History + + +------+ + | Medical History | Relation | Name | Comments | + + +------+ + | Arthritis | Father | | | + + +------+ + | Other (see comment) | Father | | Multiple surgeries | + + +------+ + | Diabetes | Mother | | | + + +------+ + | Hypertension | Mother | | | + + +------+ + | Kidney cancer | Mother | | | + + +------+ + | Rheum arthritis | Mother | | | + + +------+ + | Heart disease | Other | | | + + +------+ + | Kidney disease | Other | | | + + +------+ + | Early | Sister | | Suicide | + + +------+ + | Suicide | Sister | | | + + +------+ + + +------+--------+ + | Relation | Name | Status | Comments | + +------+--------+ + | Father | | Alive | | + +------+--------+ + | Mother | | Alive | | + +------+--------+ + | Other | | | | + +------+--------+ + | Sister | | | | + +------+--------+ + Social History + +-------+ +--------+------+ | [...] on file | | + + + Last Filed Vital Signs + + + + | Vital Sign | Reading | Time Taken | + + + + | Blood Pressure | 118/84 | 04/09/20185 PDT | + + + + | Pulse | 110 | 04/09/20181124 PDT | + + + [...] | Body Mass Index | 38.27 | 04/09/20181124 PDT | + + + + Plan of Treatment + + + + + | Health Maintenance | Due Date | Last Done | Comments | + + + + + | Vaccine: | | | | | Dtap/Tdap/Td (1 - | 7 | | | | Tdap) | | | | + + + + + | Cervical Cancer | | | | | Screening (Pap) | 8 | | | + + + + + | BREAST CANCER | | | | | SCREENING (MAMM Q2 | 8 | | | | YEARS 50-74) | | | | + + + + + | Colorectal Cancer | | | | | Screening | 8 | | | | (Colonoscopy) | | | | + + + + + | Vaccine: Influenza | | | | | (#1) | 8 | | | + + + + + Results Not on filefrom Last 3 Months Insurance + +--------+ +------+ +---------+ | Payer | Benefi | Subscriber | Type | Phone | Address | | | t Plan | ID | | | | | | / | | | | | | | Group | | | | | + +--------+ +------+ +---------+ | [employer] | PACIFI | [id number] | PPO | [phone] | | | CSOUR | | | [phone] | | | | E | | | | | | | FIRST | | | | | | | CHOICE | | | | | + +--------+ +------+ +---------+ + +--------+ +--------+ + + | Guarantor Name | Accoun | Relation to | Date | Phone | Billing Address | | | t Type | Patient | of | | | | | | | | | | + +--------+ +--------+ + + | DAISY DOMINGUEZ | Person | Self [birth year] | Work: | [address] | | | [place] | | [phone] | [phone] | [place] [address] | | | saritha | | | [address]: | | | | | | | | | | | | | | [phone] | | | | | | | [address] | | + +--------+ +--------+ + +
--- OUTSIDE RECORDS SUMMARY | ~2018-06-07 | XMS | Encounter Summary ---
Demographics + + + | Address | [address] | | | [place] [address] | + + + | Home Phone | | + + + | Preferred Language | Unknown | + + + | Marital Status | Unknown | + + + | Spiritism Affiliation | Unknown | + + + | Race | Unknown | + + + | Ethnic Group | Unknown | + + + Author + + + | Author | [facility] | + + + | Organization | [facility] | + + + | Address | [...] Team Providers + +------+ + | Care Jackhammer Splitter Operator Name | Role | Phone | + +------+ + | William Starr MD | PCP | | + +------+ + Reason for Visit + + + | Reason | Comments | + + + | Multiple Sclerosis | IVSM 1/3 | + + + Encounter Details +--------+ + + + + | Date | Type | Department | Care Team | Description | +--------+ + + + + | 04/03/ | Clinical | [facility] | Aliza Hartmann, | Multiple sclerosis | | 2018 | Support | [facility] | RN | ([facility]) | | | | [address] | | | | | | [place] | | | | | | [address] | | | | | | [phone] | | | +--------+ + + + [...] this encounter Last Filed Vital Signs + +---------+ + | Vital Sign | Reading | Time Taken | + +---------+ + | Blood Pressure | 116/64 | 04/03/2018 1:56 PM PDT | + +---------+ + | Pulse | 96 | 04/03/2018 1:56 PM PDT | + +---------+ + | Temperature | - | - | + +---------+ + | Respiratory Rate | - | - | + +---------+ + | Oxygen Saturation | 97% | 04/03/2018 1:56 PM PDT | + +---------+ + | Inhaled Oxygen | - | - | | Concentration | | | + +---------+ + | Weight | - | - | + +---------+ + | Height | - | - | + +---------+ + | Body Mass Index | - | - | + +---------+ + in this encounter Progress Notes Aliza Hartmann RN - 04/03/2018 1:45 PM [id number] Pt presents for IV Solu-Medrol infusion. Pt identification verified and patient taken to Exam Room 31. 1400 IV access was obtained without difficulty in the left AC using a 24 GA 0.75 IV cathete r. Pt tolerated well. 1410 Medication is IV Solu-Medrol 1g diluted in 100mL of 0.9% Normal Saline immediately tre or to infusion. The infusion was started as an IVPB immediately after obtaining IV access at a rate of 110 mL/hr utilizing an Yolto IV pump. Primary solution is 100 mL NS. 1510 Solu-Medrol infusion completed. IV access DC'd without difficulty. Catheter intact. Si te WNL. Pressure dressing applied. Pt instructed to remove dressing in approximately 2 hours . 1520 Pt tolerated the infusion very well and was discharged to home. in this encounter Plan of Treatment +--------+---------+ + + + | Date | Type | Specialty | Care Team | Description | +--------+---------+ + + + | 12/08/ | Office | Neurology | Robel John, | | | 2019 | Visit | | MD Ben Dominguez | | | | | | Drive [place], [place] | | | | | | [address] | | | | | | | | +--------+---------+ + + + as of this encounter Visit Diagnoses + + | Diagnosis | + + | Multiple sclerosis (HCC) | + + | Multiple sclerosis | + + Administered Medications + +--------+ + +------+ + | Medication Order | MAR | Action | Dose | Rate | Site | | | Action | Date | | | | + +--------+ + +------+ + | methylPREDNISolone | Given | | 1,000 mg | | Left Arm | | (Solu-MEDROL) injection 1,000 mg | | 8 14:10 | | | | | 1,000 mg, Intravenous, Once, [place] | | PDT | | | | | 04/03/18 at 1530, For 1 dose | | | | | | + +--------+ + +------+ + +---+---+ | | | +---+---+ in this encounter"
--- OUTSIDE RECORDS SUMMARY | ~2018-06-07 | XMS | Encounter Summary ---
Demographics + + + | Address | [address] | | | [place] [address] | + + + | Home Phone | | + + + | Preferred Language | Unknown | + + + | Marital Status | Unknown | + + + | Spiritism Affiliation | Unknown | + + + | Race | Unknown | + + + | Ethnic Group | Unknown | + + + Author + + + | Author | [facility] | + + + | Organization | [facility] | + + + | Address | [...] Team Providers + +------+ + | Care Financial Accounting Analyst Name | Role | Phone | + +------+ + | William Starr MD | PCP | | + +------+ + Reason for Visit +--------+ + | Reason | Comments | +--------+ + | Other | [facility] MRI report DOS 05/07/18 | +--------+ + Encounter Details +--------+ + + + + | Date | Type | Department | Care Team | Description | +--------+ + + + + | 06/03/ | Documentati | Jerry | Elzbieta Malone, | Other ([facility] | | 2018 | on Only | [facility] | [facility] MRI report | | | | [address] | | DOS 05/07/18) | | | | [place] | | | | | | [address] | | | | | | [phone] | | | +--------+ + + + [...] | | | | | | Drive [place] | | | | | | [address] | | | | | | | | +--------+---------+ + + + as of this encounter Visit Diagnoses Not on filein this encounter"
--- OUTSIDE RECORDS SUMMARY | ~2018-06-07 | XMS ---
Demographics + + + | Address | [address] | | | [place] [address] | + + + | Preferred Language | Unknown | + + + | Marital Status | Unknown | + + + | Buddhism Affiliation | Unknown | + + + | Race | Unknown | + + + | Ethnic Group | Unknown | + + + Author + + + | Author | [facility] | + + + | Organization | [facility] | + + + | Address | [address] | | | [place] [address] | + + + | Phone | | + + + Care Team Providers + + + + | Care Tabulating Clerk Name | Role | Phone | + + + + Unavailable | Unavailable | + + + + PROBLEMS +---------+ + + +--------+ + + | Type | Condition | ICD9-CM | [id number] | Onset | Condition | SNOMED | | | | Code | Code | Dates | Status | Code | +---------+ + + +--------+ + + | Problem | HTN | | I10 | | Active | 59175466 | | | (hypertens | | | | | | | | ion) | | | | | | +---------+ + + +--------+ + + | Problem | Milia | L72.0 | | | Active | 641441822 | +---------+ + + +--------+ + + | Problem | Depression | | F32.9 | | Active | 223712336 | +---------+ + + +--------+ + + | Problem | Immunocomp | D84.9 | | | Active | 314947039 | | | romised | | | | | | +---------+ + + +--------+ + + | Problem | Relapsing | G35 | | | Active | 212554190 | | | remitting | | | | | | | | multiple | | | | | | | | sclerosis | | | | | | +---------+ + + +--------+ + + | Problem | 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 | 929170463 | | | hyperplasi | | | | | | | | a | | | | | | +---------+ + + +--------+ + + | Problem | Lentigo | L81.4 | | | Active | 849259894 | +---------+ + + +--------+ + + | Problem | Seborrheic | L82.1 | | | Active | 17008578 | | | keratosis | | | | | | +---------+ + + +--------+ + + | Problem | Telangiect | I78.1 | | | Active | 342329660 | | | jairon | | | | | | +---------+ + + +--------+ + + | Problem | Knee pain, | 719.46 | | | Active | 768951003 | | | right | | | | | | +---------+ + + +--------+ + + | Problem | Exposure | Z20.89 | | | Active | 4951233365 | | | to | | | | | [address] | | | Coccidioid | | | | | | | | es immitis | | | | | | +---------+ + + +--------+ + + | Problem | Hypothyroi | | E03.9 | | Active | 98892480 | | | dism | | | | | | +---------+ + + +--------+ + + | Problem | Exposure | Z20.1 | | | Active | 7265228680 | | | to TB | | | | | 101 | +---------+ + + +--------+ + + | Problem | Effusion | 719.06 | | | Active | 317096908 | | | of joint | | | | | | | | of lower | | | | | | | | leg | | | | | | +---------+ + + +--------+ + + | Problem | Morbid | | E66.01 | | Active | 517570061 | | | obesity | | | | | | +---------+ + + +--------+ + + ALLERGIES Unknown Allergies SOCIAL HISTORY No smoking Hx information available PLAN OF CARE VITAL SIGNS MEDICATIONS Unknown Medications RESULTS No Results PROCEDURES No Known procedures IMMUNIZATIONS No Known Immunizations"
--- OUTSIDE RECORDS SUMMARY | ~2018-06-07 | XMS | Encounter Summary ---
Demographics + + + | Address | [address] | | | [place] [address] | + + + | Home Phone | | + + + | Preferred Language | Unknown | + + + | Marital Status | Unknown | + + + | Zoroastrianism Affiliation | Unknown | + + + | Race | Unknown | + + + | Ethnic Group | Unknown | + + + Author + + + | Author | [facility] | + + + | Organization | [facility] | + + + | Address | [...] Team Providers + +------+ + | Care Ice Bag Assembler Name | Role | Phone | + +------+ + | William Starr MD | PCP | | + +------+ + Encounter Details +--------+ + + + + | Date | Type | Department | Care Team | Description | +--------+ + + + + | 04/03/ | Lab | [facility] | Trevor Santos, | Multiple sclerosis | | 2018 | Requisition | [address] | Therapeutic Radiologist | ([facility]); Other fatigue | | | | [place] [address] | | | | | | [phone] | | | +--------+ + + + [...] | | | | | | [place], [place] | | | | | | [address] | | | | | | | | +--------+---------+ + + + as of this encounter Procedures + +--------+ + + + | Procedure Name | Priori | Date/Time | Associated Diagnosis | Comments | | | ty | | | | + +--------+ + + + | TSH REFLEX | Routin | 04/03/2018 | Multiple sclerosis | Results for this | | | e | 3:21 PM | (HCC) Other | procedure are in the | | | | PDT | fatigue | results section. | + +--------+ + + + | CBC W/AUTO DIFF | Routin | 04/03/2018 | Multiple sclerosis | Results for this | | (REFLEX TO MANUAL) | e | 3:21 PM | (HCC) Other | procedure are in the | | | | PDT | fatigue | results section. | + +--------+ + + + | VITAMIN B12 | Routin | 04/03/2018 | Multiple sclerosis | Results for this | | | e | 3:21 PM | ([facility]) Other | procedure are in the | | | | PDT | fatigue | results section. | + +--------+ + + + | COMPREHENSIVE | Routin | 04/03/2018 | Multiple sclerosis | Results for this | | METABOLIC PANEL | e | 3:21 PM | ([facility]) Other | procedure are in the | | | | PDT | fatigue | results section. | + +--------+ + + + in this encounter Results Vitamin B12 (04/03/2018 3:21 [...] + + + | [facility] | [address] | [place] [address] | [phone] | | LABORATORY | Blvd[address] | | [...] + + + | [facility] | [address] | [place] [address] | [phone] | | LABORATORY | Blvd[address] | | [...] (L)Comment: GFR <60: | >60 mL/min/1.73_m2 | [facility] | | | CHRONIC KIDNEY DISEASE, | [...] | + + + + + | [facility] | [address] | [place] [address] | [phone] | | LABORATORY | Blvd[address] | | [...] + + + | [facility] | [address] | [place] [address] | [phone] | | LABORATORY | Blvd. | | | + + + + + in this encounter Visit Diagnoses + + | Diagnosis | + + | Multiple sclerosis (HCC) | + + | Multiple sclerosis | + + | Other fatigue | + +"
--- OUTSIDE RECORDS SUMMARY | ~2018-06-07 | XMS | Encounter Summary ---
Demographics + + + | Address | [address] | | | [place] [address] | + + + | Home Phone | | + + + | Preferred Language | Unknown | + + + | Marital Status | Unknown | + + + | Congregation Affiliation | Unknown | + + + | Race | Unknown | + + + | Ethnic Group | Unknown | + + + Author + + + | Author | [facility] | + + + | Organization | [facility] | + + + | Address | [...] Team Providers + +------+ + | Care Cement Loader Name | Role | Phone | + +------+ + | William Starr MD | PCP | | + +------+ + Reason for Visit + + + | Reason | Comments | + + + | Medication Refill | Refill request | + + + Encounter Details +--------+--------+ + + + | Date | Type | Department | Care Team | Description | +--------+--------+ + + + | 05/28/ | Refill | [facility] | Kelly Rollins, | | | 2017 | | [facility] | [address] | | | | | [address] | | | | | | [place] | | | | | | [address] | | | | | | [phone] | | | +--------+--------+ + + + Social History + +-------+ [...] [place] | | | | | | [address] | | | | | | | | +--------+---------+ + + + as of this encounter Visit Diagnoses Not on filein this encounter"
--- OUTSIDE RECORDS SUMMARY | ~2018-06-07 | XMS ---
Demographics + + + | Address | [address] | | | [place] [address] | + + + | Preferred Language | Unknown | + + + | Marital Status | Unknown | + + + | Moravian Affiliation | Unknown | + + + | Race | Unknown | + + + | Ethnic Group | Unknown | + + + Author + + + | Author | [facility] | + + + | Organization | [facility] | + + + | Address | [address] | | | [place] [address] | + + + | Phone | | + + + Care Team Providers + + + + | Care Habitat Management Coordinator Name | Role | Phone | + + + + Unavailable | Unavailable | + + + + PROBLEMS + + + + + + + + | Type | Condition | ICD9-CM | [id number] | Onset | Condition | SNOMED | | | | Code | Code | Dates | Status | Code | + + + + + + + + | Problem | HTN | | I10 | | Active | 43364921 | | | (hypertens | | | | | | | | ion) | | | | | | + + + + + + + + | Problem | Milia | L72.0 | | | Active | 812256074 | + + + + + + + + | Problem | Depression | | F32.9 | | Active | 116188349 | + + + + + + + + | Problem | Immunocomp | D84.9 | | | Active | 570688989 | | | romised | | | | | | + + + + + + + + | Problem | Relapsing | G35 | | | Active | 744453952 | | | remitting | | | | | | | | multiple | | | | | | | | sclerosis | | | | | | + + + + + + + + | Problem | 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 | 415986769 | | | hyperplasi | | | | | | | | a | | | | | | + + + + + + + + | Problem | Lentigo | L81.4 | | | Active | 742545980 | + + + + + + + + | Problem | Seborrheic | L82.1 | | | Active | 71428507 | | | keratosis | | | | | | + + + + + + + + | Problem | Telangiect | I78.1 | | | Active | 284863763 | | | jairon | | | | | | + + + + + + + + | Assessment | UTI | | N39.0 | 18 Dec, | Active | 09694224 | | | (urinary | | | 2016 | | | | | tract | | | | | | | | infection) | | | | | | + + + + + + + + | Assessment | URI (upper | | J06.9 | 18 Dec, | Active | 28491987 | | | | | | 2016 | | | | | respirator | | | | | | | | y | | | | | | | | infection) | | | | | | + + + + + + + + | Assessment | Osteoarthr | M17.11 | | 18 Dec, | Active | 512207239 | | | itis of | | | 2016 | | | | | right knee | | | | | | + + + + + + + + | Problem | Knee pain, | 719.46 | | | Active | 186600712 | | | right | | | | | | + + + + + + + + | Problem | Exposure | Z20.89 | | | Active | 6612659539 | | | to | | | | | [address] | | | Coccidioid | | | | | | | | es immitis | | | | | | + + + + + + + + | Assessment | HTN | | I10 | 18 Apr, | Active | 30206723 | | | (hypertens | | | 2016 | | | | | ion) | | | | | | + + + + + + + + | Problem | Exposure | Z20.1 | | | Active | 4262679418 | | | to TB | | | | | 101 | + + + + + + + + | Problem | Effusion | 719.06 | | | Active | 736434092 | | | of joint | | | | | | | | of lower | | | | | | | | leg | | | | | | + + + + + + + + | Problem | Morbid | | E66.01 | | Active | 261864649 | | | obesity | | | | | | + + + + + + + + ALLERGIES + + + + +--------+ | Substance | Reaction | Event Type | Date | Status | + + + + +--------+ | Oxycodone HCl | itching | Drug Allergy | Dec, | Active | + + + + +--------+ | mela inhibitors | lesions in | Non Drug | 18 Dec, 2016 | Active | | | throat | Allergy | | | + + + + +--------+ SOCIAL HISTORY No smoking Hx information available PLAN OF CARE VITAL SIGNS + + + + | Height | 66 in | 2017-01-01 | + + + + | Weight | 222 lbs | 2017-01-01 | + + + + | BMI | 35.83 kg/m2 | 2017-01-01 | + + + + | Temperature | 97.7 degrees Fahrenheit | 2017-01-01 | + + + + | Heart Rate | 82 /min | 2017-01-01 | + + + + | Blood pressure systolic | 141 mm Hg | 2017-01-01 | + + + + | Blood pressure diastolic | 87 mm Hg | 2017-01-01 | + + + + MEDICATIONS + + + + + + + +--------+ | Medicati | Instruct | Dosage | Frequenc | Start | End Date | Duration | Status | | on | ions | | y | Date | | | | + + + + + + + +--------+ | Vitamin | Orally | 1 tablet | 24h | | | 30 | Active | | D 2000 | Once a | with a | | | | day(s) | | | UNIT | day | meal | | | | | | + + + + + + + +--------+ | Trazodon | Orally | 1 tablet | 24h | | | | Active | | e 50 MG | Once a | at | | | | | | | | day | bedtime | | | | | | | | | as | | | | | | | | | needed | | | | | | + + + + + + + +--------+ | Allergy | Orally | 1 tablet | 12h | | | | Active | | D-12 | Twice a | | | | | | | | 5-120 MG | day | | | | | | | + + + + + + + +--------+ | Cymbalta | Orally | 1 | 24h | | | 90 days | Active | | 60 MG | Once a | capsule | | | | | | | | day | | | | | | | + + + + + + + +--------+ | Celebrex | Orally | 2 | 24h | | | | Active | | 100 MG | Once a | capsules | | | | | | | | day | | | | | | | + + + + + + + +--------+ | Copaxone | Subcutan | 1 | 24h | | | 30 | Active | | 20 | eous | | | | | day(s) | | | MG/ML | Once a | | | | | | | | | day | | | | | | | + + + + + + + +--------+ | Prilosec | Orally | 1 tablet | 24h | | | 30 | Active | | OTC 20 | Once a | | | | | day(s) | | | MG | day | | | | | | | + + + + + + + +--------+ | Tizanidi | Orally | 2 | 24h | | | | Active | | ne HCl 2 | Once a | tablets | | | | | | | MG | day | | | | | | | + + + + + + + +--------+ | Simvasta | Orally | 1 tablet | 24h | | | | Active | | tin 10 | Once a | every | | | | | | | MG | day | evening | | | | | | + + + + + + + +--------+ | Cipro | Orally | 1 tablet | 12h | 17 Dec, | 22 Apr, | 5 day(s) | Active | | 500 MG | Twice a | | | 2017 | 2017 | | | | | day | | | | | | | + + + + + + + +--------+ | Amlodipi | Orally | 1 tablet | 24h | 14 Nov, | | 30 | Active | | ne | Once a | | | 2017 | | day(s) | | | Besylate | day | | | | | | | | 5 MG | | | | | | | | + + + + + + + +--------+ RESULTS No Results PROCEDURES + + + + + | Procedure | Date Ordered | Related Diagnosis | Body Site | + + + + + | Est Level III | January 01, 2017 | | | | Intermediate | | | | + + + + + | DSCHRG MED/CURRENT | January 01, 2017 | | | | MED MERGE | | | | + + + + + IMMUNIZATIONS No Known Immunizations"
--- OUTSIDE RECORDS SUMMARY | ~2018-06-07 | XMS | Clinical Summary ---
Demographics + + + | Address | [address] | | | [place] [address] | + + + | Home Phone | | + + + | Preferred Language | Unknown | + + + | Marital Status | | + + + | Samaritan Affiliation | Unknown | + + + | Race | Unknown | + + + | Ethnic Group | Unknown | + + + Author + + + | Author | [facility] | | | and [place] | + + + | Organization | [facility] | | | and [place] | [...] Team Providers + +------+ + | Care It Systems Administrator Name | Role | Phone | + [...] +------+ +---------+ | [employer] | PACIFI | [phone] | PPO | [phone] | | [...] | | venita/Emanuel | | [phone] | [phone] | [place] [address] | | | saritha | | | [address]: | | | | | | | | | | | | | | [phone] | | | | | | | [address] | | + +--------+ +--------+ + +
--- OUTSIDE RECORDS SUMMARY | ~2018-06-07 | XMS | Encounter Summary ---
Demographics + + + | Address | [address] | | | [place] [address] | + + + | Home Phone | | + + + | Preferred Language | Unknown | + + + | Marital Status | Unknown | + + + | Orthodoxy Affiliation | Unknown | + + + | Race | Unknown | + + + | Ethnic Group | Unknown | + + + Author + + + | Author | [facility] | + + + | Organization | [facility] | + + + | Address | [...] Team Providers + +------+ + | Care Transactional Paralegal Name | Role | Phone | + +------+ + | William Starr MD | PCP | | + +------+ + Encounter Details +--------+ + + + + | Date | Type | Department | Care Team | Description | +--------+ + + + + | 06/02/ | Procedure | [facility] | | | | 2018 | Pass | [facility] | | | | | | RADIOLOGY [address] | | [address] | | | | | | [place] [address] | | | | | | [phone] | | | +--------+ + + + [...] | | | | | | [place] | | | | | | [address] | | | | | | | | +--------+---------+ + + + as of this encounter Visit Diagnoses Not on filein this encounter"
--- OUTSIDE RECORDS SUMMARY | ~2018-06-07 | XMS | Encounter Summary ---
Demographics + + + | Address | [address] | | | [place] [address] | + + + | Home Phone | | + + + | Preferred Language | Unknown | + + + | Marital Status | | + + + | Uatsdin Affiliation | Unknown | + + + | Race | Unknown | + + + | Ethnic Group | Unknown | + + + Author + + + | Author | [facility] | | | and [place] | + + + | Organization | [facility] | | | and [place] [...] Team Providers + +------+ + | Care Crop Duster Helper Name | Role | Phone | + [...] | Physical | Diagnoses | Matty, | [place], | | | | Medicine and | Cervical | William Haywood, | Cj Fatima MD | | | | Rehabilitatio | radiculopath | [address] | [address] | | | | n | y | [address] | [address] [place] | | | | | | [place], | [place], [place] | | | | | | [place] [address] | [address] Phone: | | | | | | Phone: | [phone] | | | | | | [phone] | Fax: | | | | | | Fax: | [phone] | | | | | | [phone] | | +--------+--------+ + + + + [...] Myofascial pain on | | | | [place], | [address] [place] | right side | | | | [place] [address] | [place] [address] | | | | | [phone] | [phone] | | | | | | | [...] does have MS and is followed by [facility]. Destiny segura just received a steroid [...] has no apparent deficits with short or long-term memory. She has appropriate fund of knowledge [...]
--- OUTSIDE RECORDS SUMMARY | ~2018-06-07 | XMS | Encounter Summary ---
Demographics + + + | Address | [address] | | | [place] [address] | + + + | Home Phone | | + + + | Preferred Language | Unknown | + + + | Marital Status | Unknown | + + + | Evangelical Affiliation | Unknown | + + + | Race | Unknown | + + + | Ethnic Group | Unknown | + + + Author + + + | Author | [facility] | + + + | Organization | [facility] | + + + | Address | [...] Team Providers + +------+ + | Care Family Nurse Practitioner Name | Role | Phone | + [...] + + + + | 06/02/ | Ancillary | [facility] | See, Medical | Pain | | 2018 | [facility] MRI | Record | | | | | [address] | | | | | | [place] [address] | | | | | | [phone] | | | +--------+ + + + [...] | | | | | | [place], [place] | | | | | | [address] | | | | | | | | +--------+---------+ + + + as of this encounter Results MRI lumbar spine with [...] | + + + + + | [facility] | [address] | [place] [address] | | + + + + + in this encounter Visit Diagnoses + + | Diagnosis | + + | Pain | + + | Generalized pain | + +"
--- OUTSIDE RECORDS SUMMARY | ~2018-06-07 | XMS ---
Demographics + + + | Address | [address] | | | [place] [address] | + + + | Preferred Language | Unknown | + + + | Marital Status | Unknown | + + + | Mu-Ism Affiliation | Unknown | + + + | Race | Unknown | + + + | Ethnic Group | Unknown | + + + Author + + + | Author | [facility] | + + + | Organization | [facility] | + + + | Address | [address] | | | [place] [address] | + + + | Phone | | + + + Care Team Providers + + + + | Care Paper Goods Machine Set Up Operator Name | Role | Phone | + + + + Unavailable | Unavailable | + + + + PROBLEMS +---------+ + + +--------+ + + | Type | Condition | ICD9-CM | [id number] | Onset | Condition | SNOMED | | | | Code | Code | Dates | Status | Code | +---------+ + + +--------+ + + | Problem | HTN | | I10 | | Active | 96118395 | | | (hypertens | | | | | | | | ion) | | | | | | +---------+ + + +--------+ + + | Problem | Milia | L72.0 | | | Active | 582613483 | +---------+ + + +--------+ + + | Problem | Depression | | F32.9 | | Active | 042666206 | +---------+ + + +--------+ + + | Problem | Immunocomp | D84.9 | | | Active | 987440505 | | | romised | | | | | | +---------+ + + +--------+ + + | Problem | Relapsing | G35 | | | Active | 629335659 | | | remitting | | | | | | | | multiple | | | | | | | | sclerosis | | | | | | +---------+ + + +--------+ + + | Problem | 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 | 410443562 | | | hyperplasi | | | | | | | | a | | | | | | +---------+ + + +--------+ + + | Problem | Lentigo | L81.4 | | | Active | 629905210 | +---------+ + + +--------+ + + | Problem | Seborrheic | L82.1 | | | Active | 54882843 | | | keratosis | | | | | | +---------+ + + +--------+ + + | Problem | Telangiect | I78.1 | | | Active | 115944683 | | | jairon | | | | | | +---------+ + + +--------+ + + | Problem | Knee pain, | 719.46 | | | Active | 790151033 | | | right | | | | | | +---------+ + + +--------+ + + | Problem | Exposure | Z20.89 | | | Active | 3886807487 | | | to | | | | | [address] | | | Coccidioid | | | | | | | | es immitis | | | | | | +---------+ + + +--------+ + + | Problem | Hypothyroi | | E03.9 | | Active | 65048051 | | | dism | | | | | | +---------+ + + +--------+ + + | Problem | Exposure | Z20.1 | | | Active | 7486657139 | | | to TB | | | | | 101 | +---------+ + + +--------+ + + | Problem | Effusion | 719.06 | | | Active | 725003479 | | | of joint | | | | | | | | of lower | | | | | | | | leg | | | | | | +---------+ + + +--------+ + + | Problem | Morbid | | E66.01 | | Active | 611001758 | | | obesity | | | | | | +---------+ + + +--------+ + + ALLERGIES Unknown Allergies SOCIAL HISTORY No smoking Hx information available PLAN OF CARE VITAL SIGNS MEDICATIONS Unknown Medications RESULTS No Results PROCEDURES No Known procedures IMMUNIZATIONS No Known Immunizations"
--- OUTSIDE RECORDS SUMMARY | ~2018-06-07 | XMS | Encounter Summary ---
Demographics + + + | Address | [address] | | | [place] [address] | + + + | Home Phone | | + + + | Preferred Language | Unknown | + + + | Marital Status | | + + + | Samaritan Affiliation | Unknown | + + + | Race | Unknown | + + + | Ethnic Group | Unknown | + + + Author + + + | Author | [facility] | | | and [place] | + + + | Organization | [facility] | | | and [place] [...] Team Providers + +------+ + | Care Webbing Weaver Name | Role | Phone | + +------+ + | William Starr MD | PCP | | + +------+ + Encounter Details +--------+ + + + + | Date | Type | Department | Care Team | Description | +--------+ + + + + | 04/07/ | Abstract | [facility] [place] | [place], | | | 2017 | | PHYSIATRY [address] | | | | | [place], | [address] [place] | | | | | [place] [address] | [place] [address] | | | | | [phone] | [phone] | | | | | | | | +--------+ + + + [...] as of this encounter Plan of Treatment Not on fileas of this encounter Visit Diagnoses Not on filein this encounter"
--- OUTSIDE RECORDS SUMMARY | ~2018-06-07 | XMS | Encounter Summary ---
Demographics + + + | Address | [address] | | | [place] [address] | + + + | Home Phone | | + + + | Preferred Language | Unknown | + + + | Marital Status | Unknown | + + + | Oriental Orthodox Affiliation | Unknown | + + + | Race | Unknown | + + + | Ethnic Group | Unknown | + + + Author + + + | Author | [facility] | + + + | Organization | [facility] | + + + | Address | [...] Team Providers + +------+ + | Care Industrial Sweeper Cleaner Name | Role | Phone | + [...] Rollins, | | | 2017 | | [facility] | TANKER TRUCK 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
--- OUTSIDE RECORDS SUMMARY | ~2018-06-07 | XMS | Clinical Summary ---
Demographics + + + | Address | [address] | | | [place] [address] | + + + | Home Phone | | + + + | Preferred Language | Unknown | + + + | Marital Status | Unknown | + + + | Religion Affiliation | Unknown | + + + | Race | Unknown | + + + | Ethnic Group | Unknown | + + + Author + + + | Author | [facility] | + + + | Organization | [facility] | + + + | Address | [...] Team Providers + +------+ + | Care Process Improvement Specialist Name | Role | Phone | + [...] + + + Current Medications + + +---------+---------+------+------+-------+ | Prescription | Sig. | Disp. | Refills | Star | End | Statu | | | | | | t | Date | s | | | | | | Date | | | + + +---------+---------+------+------+-------+ | Cholecalciferol | Take 2,000 Units by | | | | | Activ | | (VITAMIN D) 2000 | mouth daily. | | | | | e | | UNIT tablet | | | | | | | + + +---------+---------+------+------+-------+ | simvastatin | Take 20 mg by mouth | | | 04/0 | | Activ | | (ZOCOR) 20 MG tablet | daily. | | | 7/20 | | e | | | | | | 15 | | | + + +---------+---------+------+------+-------+ | DULoxetine | Take 1 capsule by | 30 | 5 | 12/1 | | Activ | | (CYMBALTA) [address] | mouth daily. | capsule | | 7/20 | | e | | capsule | | | | 15 | | | + + +---------+---------+------+------+-------+ | ondansetron | Take 4 mg by mouth | | | | | Activ | | (ZOFRAN) 4 MG tablet | as needed for | | | | | e | | | Nausea. | | | | | | + + +---------+---------+------+------+-------+ | levothyroxine | Take 25 mcg by mouth | | | 10/0 | | Activ | | (SYNTHROID) 25 MCG | daily. | | | 4/20 | | e | | tablet | | | | 17 | | | + + +---------+---------+------+------+-------+ | losartan (COZAAR) | Take 25 mg by mouth | | | 10/1 | | Activ | | 25 MG tablet | daily. | | | 01/03 | | e | | | | | | 17 | | | + + +---------+---------+------+------+-------+ | tiZANidine | take 1 tablet by | 60 | 5 | 05 | | Activ | | (ZANAFLEX) 4 MG | mouth twice a day | tablet | | 520 | | e | | tablet | | | | 18 | | | + + +---------+---------+------+------+-------+ | celecoxib | Take 1 capsule by | 40 | 3 | 07/ | | Activ | | (CELEBREX) 100 MG | mouth 2 (two) times | capsule | | 06/05 | | e | | capsuleIndications: | daily. | | | 18 | | | | Multiple sclerosis | | | | | | | | (HCC) | | | | | | | + + +---------+---------+------+------+-------+ | glatiramer acetate | INJECT 1 SYRINGE | 12 | 5 | 03/16 | | Activ | | (COPAXONE) 40 MG/ML | (40MG) | Syringe | | 9/20 | | e | | | SUBCUTANEOUSLY THREE | | | 18 | | | | injectionIndications | TIMES PER WEEK | | | | | | | : Multiple sclerosis | -REFRIGERATE DO NOT | | | | | | | (FORM[facility]LY [facility]) | FREEZE | | | | | | + + +---------+---------+------+------+-------+ | modafinil | Take 1 tablet by | 30 | 3 | 03/16 | | Activ | | (PROVIGIL) 200 MG | mouth daily as | tablet | | 9/20 | | e | | tablet | needed for up to 30 | | | 18 | | | | | days. | | | | | | + + +---------+---------+------+------+-------+ | omeprazole | Take 1 capsule by | 30 | 5 | 05/17 | 05/17 | Activ | | (PRILOSEC) 20 MG | mouth every morning | capsule | | 2/20 | 2/20 | e | | capsule | before breakfast. | | | 18 | 19 | | + + +---------+---------+------+------+-------+ | traZODone | Take 1 tablet by | 30 | 5 | 09/1 | 10/ | Activ | | (DESYREL) 50 MG | mouth nightly for 30 | tablet | | 2/20 | 2/20 | e | | tablet | days. | | | 18 | 18 | | + + +---------+---------+------+------+-------+ | omeprazole | take 1 capsule by | 30 | 5 | 03/1 | /1 | Disco | | (PRILOSEC) 20 MG | mouth every morning | capsule | | 2/20 | 2/20 | ntinu | | capsule | BEFORE BREAKFAST | | | 18 | 18 | ed | + + +---------+---------+------+------+-------+ | traZODone | take 1 tablet by | 30 | 5 | 03/1 | 09/1 | Disco | | (DESYREL) 50 MG | mouth NIGHTLY | tablet | | 2/20 | 2/20 | ntinu | | tablet | | | | 18 | 18 | ed | + + +---------+---------+------+------+-------+ Active Problems + + + | Problem | Noted Date | + + + | Multiple sclerosis (HCC) | 05/03/2011 | + + + Encounters +--------+ + + + + | Date | Type | Specialty | Care Team | Description | +--------+ + + + + | 06/03/ | Office | | Robel oJhn, | Multiple sclerosis | | 2018 | Visit | | MD | (HCC) (Primary Dx); | | | | | | Other fatigue | +--------+ + + + + | 06/03/ | Documentati | | Elzbieta Malone, | Mercedes (patient | | 2018 | on Only | | [place] | enrollment form | | | | | | Glatiramer Acetate | | | | | | injection faxed | | | | | | successfully) | +--------+ + + + + | 06/03/ | Documentati | | Elzbieta Malone, | Other ([facility] | | 2018 | on Only | | [place] | hospital MRI report | | | | | | DOS 05/07/18) | +--------+ + + + + | 06/03/ | Telephone | | Elzbieta Malone, | | | 2018 | | | [place] | | +--------+ + + + + | 06/02/ | Hospital | | See, Medical | Pain | | 2018 | Encounter | | Record | | +--------+ + + + + | 06/02/ | Procedure | | | | | 2018 | Pass | | | | +--------+ + + + + | 06/02/ | Ancillary | | See, Medical | Pain | | 2018 | Orders | | Record | | +--------+ + + + + | 05/28/ | Refill | | Kelly Rollins, | | | 2017 | | | YOLIS | | +--------+ + + + + | 05/02/ | Telephone | | Dimple Gloria | | | 2017 | | | PHAN Rodriguez | | +--------+ + + + + | 04/28/ | Homero | | Dimple Gloria | | 2017 | | | PHAN Rodriguez | | +--------+ + + + + | 04/03/ | Clinical | | Aliza Hartmann, | Multiple sclerosis | | 2018 | Support | | RN | ([facility]) | +--------+ + + + + | 04/03/ | Office | | Robel John, | Multiple sclerosis | | 2017 | Visit | | MD | ([facility]) (Primary Dx); | | | | | | Other fatigue | +--------+ + + + + | 04/03/ | Lab | | Trevor Santos, | Multiple sclerosis | | 2017 | Requisition | | Manager Sound | ([facility]); Other fatigue | +--------+ + + + + | 04/03/ | Telephone | | Argentina Helms, | Care Coordination | | 2017 | | | DRAFT ROLLER PICKER | (IV Solu-Medrol (3 | | | | | | day course)) | +--------+ + + + + | 03/31/ | Telephone | | Deandre Leonardo, | Other (Scheduling) | | 2018 | | | [place] | | +--------+ + + + + from Last 3 Months Social History + +-------+ +--------+------+ | Tobacco [...] + + + | Blood Pressure | 153/85 | 06/03/2018 9:06 AM PDT | + + + + | Pulse | 83 | 06/03/2018 9:06 AM PDT | + + + + | Temperature | - | - | + + + + | Respiratory Rate | - | - | + + + + | Oxygen Saturation | 100% | 06/03/2018 9:06 AM PDT | + + + + | Inhaled Oxygen | - | - | | Concentration | | | + + + + | Weight | 102.6 kg (226 lb 4.8 | 06/03/2018 9:06 AM PDT | | | oz) | | + + + + | Height | 167.6 cm (5' 6") | 06/03/2018 9:06 AM PDT | + + + + | Body Mass Index | 36.53 | 06/03/2018 9:06 AM PDT | + + + + Plan of Treatment +--------+---------+ + + + | Date | Type | Specialty | Care Team | Description | +--------+---------+ + + + | 12/08/ | Office | | Robel John, | | | 2019 | Visit | | MD [place] Doming[place] | | | | | | [place] | | | | | | [address] | | | | | | | | +--------+---------+ + + + + + + + + | Health [...] | + + + + + | Breast Cancer | | | | | Screening | 8 | | | | (Mammogram) | | | | + + + + + | Colon Cancer | | | | | Screening | 8 | | | | (Colonoscopy) | | | | + + + + + | Vaccine: Influenza | | | | | (#1) | 8 | | | + + + + + Procedures + +--------+ + + + | [...] | | e | 3:21 PM | (FORM[facility]LY [facility]) Other | procedure are in the | | | | PDT | fatigue | results section. | + +--------+ + + + | COMPREHENSIVE | Routin | 04/03/2018 | Multiple sclerosis | Results for this | | METABOLIC PANEL | e | 3:21 PM | ([facility]LY [facility]) Other | procedure are in the | | | | PDT | fatigue | results section. | + +--------+ + + + | CBC W/AUTO DIFF | Routin | 04/03/2018 | Multiple sclerosis | Results for this | | (REFLEX TO MANUAL) | e | 3:21 PM | ([facility]LY [facility]) Other | procedure are in the | | | | PDT | fatigue | results section. | + +--------+ + + + from Last 3 Months Results MRI lumbar spine with and without [...] | + + + + + | [facility] | [address] | [place] [address] | | + + + + + [...] + + + + | [facility] | [address] | [place] [address] | [phone] | | LABORATORY | Blvd. | | [...] + + + + | [facility] | [address] | [place] [address] | [phone] | | LABORATORY | Blvd. | | | + + + + + Vitamin B12 (04/03/2018 3:21 PM) + +-------+ [...] | + + + + + | [facility] | [address] | [place] [address] | [phone] | | LABORATORY | Blvd. | | | + + + + + Comprehensive metabolic panel (04/03/2018 3:21 PM) + + + + + | Component | Value | Ref Range | Performed At | + + + + + | SODIUM | 141 | 135 - 145 mmol/L | [facility] | | | | | LABORATORY | [...] + + + | [facility] | [address] | [place] [address] | [phone] | | LABORATORY | Blvd. | | | + + + + + from Last 3 Months Insurance + +--------+ +------+-------+---------+ | Payer | Benefi | Subscriber | Type | Phone | Address | | | t Plan | ID | | | | | | / | | | | | | | Group | | | | | + +--------+ +------+-------+---------+ | FIRST [employer] - | FIRST | | | | | | COVENTRY | HEALTH | 00 | | | | | | - | | | | | | | PACIFI | | | | | | | CSOURC | | | | | | | E | | | | | + +--------+ +------+-------+---------+ + +--------+ +--------+ + + | Guarantor Name | Accoun | Relation to | Date | Phone | Billing Address | | | t Type | Patient | of | | | | | | | | | | + +--------+ +--------+ + + | DAISY DOMINGUEZ | Person | Self [birth year] Home: | [address] | | | al/Fam | | [phone] | [phone] | [place] | | | saritha | | | [phone] | [address] | + +--------+ +--------+ + +
--- OUTSIDE RECORDS SUMMARY | ~2018-06-07 | XMS ---
Demographics + + + | Address | [address] | | | [place] [address] | + + + | Preferred Language | Unknown | + + + | Marital Status | Unknown | + + + | Bahai Affiliation | Unknown | + + + | Race | Unknown | + + + | Ethnic Group | Unknown | + + + Author + + + | Author | [facility] | + + + | Organization | [facility] | + + + | Address | [address] | | | [place] [address] | + + + | Phone | | + + + Care Team Providers + + + + | Care Circuit Clerk Name | Role | Phone | + + + + Unavailable | Unavailable | + + + + PROBLEMS +---------+ + + +--------+ + + | Type | Condition | ICD9-CM | [id number] | Onset | Condition | SNOMED | | | | Code | Code | Dates | Status | Code | +---------+ + + +--------+ + + | Problem | HTN | | I10 | | Active | 66989281 | | | (hypertens | | | | | | | | ion) | | | | | | +---------+ + + +--------+ + + | Problem | Milia | L72.0 | | | Active | 610210214 | +---------+ + + +--------+ + + | Problem | Depression | | F32.9 | | Active | 686342437 | +---------+ + + +--------+ + + | Problem | Immunocomp | D84.9 | | | Active | 907671484 | | | romised | | | | | | +---------+ + + +--------+ + + | Problem | Relapsing | G35 | | | Active | 483873237 | | | remitting | | | | | | | | multiple | | | | | | | | sclerosis | | | | | | +---------+ + + +--------+ + + | Problem | 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 | 366763814 | | | hyperplasi | | | | | | | | a | | | | | | +---------+ + + +--------+ + + | Problem | Lentigo | L81.4 | | | Active | 990511528 | +---------+ + + +--------+ + + | Problem | Seborrheic | L82.1 | | | Active | 02643739 | | | keratosis | | | | | | +---------+ + + +--------+ + + | Problem | Telangiect | I78.1 | | | Active | 758490459 | | | jairon | | | | | | +---------+ + + +--------+ + + | Problem | Knee pain, | 719.46 | | | Active | 650782748 | | | right | | | | | | +---------+ + + +--------+ + + | Problem | Exposure | Z20.89 | | | Active | 6838558227 | | | to | | | | | [address]262 | | | Coccidioid | | | | | | | | es immitis | | | | | | +---------+ + + +--------+ + + | Problem | Hypothyroi | | E03.9 | | Active | 09387177 | | | dism | | | | | | +---------+ + + +--------+ + + | Problem | Exposure | Z20.1 | | | Active | 2149399079 | | | to TB | | | | | 101 | +---------+ + + +--------+ + + | Problem | Effusion | 719.06 | | | Active | 665078256 | | | of joint | | | | | | | | of lower | | | | | | | | leg | | | | | | +---------+ + + +--------+ + + | Problem | Morbid | | E66.01 | | Active | 950163346 | | | obesity | | | | | | +---------+ + + +--------+ + + ALLERGIES Unknown Allergies SOCIAL HISTORY No smoking Hx information available PLAN OF CARE VITAL SIGNS MEDICATIONS Unknown Medications RESULTS No Results PROCEDURES No Known procedures IMMUNIZATIONS No Known Immunizations"
--- OUTSIDE RECORDS SUMMARY | ~2018-06-07 | XMS ---
Demographics + + + | Address | [address] | | | [place] [address] | + + + | Preferred Language | Unknown | + + + | Marital Status | Unknown | + + + | Yarsani Affiliation | Unknown | + + + | Race | Unknown | + + + | Ethnic Group | Unknown | + + + Author + + + | Author | [facility] | + + + | Organization | [facility] | + + + | Address | [address] | | | [place] [address] | + + + | Phone | | + + + Care Team Providers + + + + | Care Procurement Engineer Name | Role | Phone | + + + + Unavailable | Unavailable | + + + + PROBLEMS +---------+ + + +--------+ + + | Type | Condition | ICD9-CM | [id number] | Onset | Condition | SNOMED | | | | Code | Code | Dates | Status | Code | +---------+ + + +--------+ + + | Problem | HTN | | I10 | | Active | 78859916 | | | (hypertens | | | | | | | | ion) | | | | | | +---------+ + + +--------+ + + | Problem | Milia | L72.0 | | | Active | 768478058 | +---------+ + + +--------+ + + | Problem | Depression | | F32.9 | | Active | 724752479 | +---------+ + + +--------+ + + | Problem | Immunocomp | D84.9 | | | Active | 422758620 | | | romised | | | | | | +---------+ + + +--------+ + + | Problem | Relapsing | G35 | | | Active | 993006240 | | | remitting | | | | | | | | multiple | | | | | | | | sclerosis | | | | | | +---------+ + + +--------+ + + | Problem | 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 | 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 | | | hyperplasi | | | | | | | | a | | | | | | +---------+ + + +--------+ + + | Problem | Lentigo | L81.4 | | | Active | 505949257 | +---------+ + + +--------+ + + | Problem | Seborrheic | L82.1 | | | Active | 66486346 | | | keratosis | | | | | | +---------+ + + +--------+ + + | Problem | Telangiect | I78.1 | | | Active | 082391099 | | | jairon | | | | | | +---------+ + + +--------+ + + | Problem | Knee pain, | 719.46 | | | Active | 465501347 | | | right | | | | | | +---------+ + + +--------+ + + | Problem | Exposure | Z20.89 | | | Active | 1018616754 | | | to | | | | | [address] | | | Coccidioid | | | | | | | | es immitis | | | | | | +---------+ + + +--------+ + + | Problem | Hypothyroi | | E03.9 | | Active | 90078597 | | | dism | | | | | | +---------+ + + +--------+ + + | Problem | Exposure | Z20.1 | | | Active | 9173831849 | | | to TB | | | | | 101 | +---------+ + + +--------+ + + | Problem | Effusion | 719.06 | | | Active | 885861512 | | | of joint | | | | | | | | of lower | | | | | | | | leg | | | | | | +---------+ + + +--------+ + + | Problem | Morbid | | E66.01 | | Active | 092821442 | | | obesity | | | | | | +---------+ + + +--------+ + + ALLERGIES + + + + +--------+ | Substance | Reaction | Event Type | Date | Status | + + + + +--------+ | Oxycodone HCl | itching | Drug Allergy | Mar, | Active | + + + + +--------+ | mela inhibitors | lesions in | Non Drug | 18 Mar, 2017 | Active | | | throat | Allergy | | | + + + + +--------+ SOCIAL HISTORY No smoking Hx information available PLAN OF CARE + +---------+ | Activity | Details | + +---------+ +---+ | | +---+ + + + | Follow Up | 6 Weeks Reason:null | + + + | Pending Test | Mammogram: Screening Bilateral | + + + VITAL SIGNS + + + + | Height | 66 in | 2017-04-02 | + + + + | Weight | 224.9 lbs | 2017-04-02 | + + + + | BMI | 36.30 kg/m2 | 2017-04-02 | + + + + | Temperature | 97.8 degrees Fahrenheit | 2017-04-02 | + + + + | Heart Rate | 87 /min | 2017-04-02 | + + + + | Blood pressure systolic | 118 mm Hg | 2017-04-02 | + + + + | Blood pressure diastolic | 85 mm Hg | 2017-04-02 | + + + + MEDICATIONS + [...] + + + + + +--------+ | Diclofen | Transder | 1 | 12h | 18 Keith, | 16 Sep, | 30 | Active | | ac | mal | applicat | | 2017 | 2017 | day(s) | | | Sodium 3 | Twice a | ion to | | | | | | | % | day | affected | | | | | | | | | area | | | | | | + [...] | 1 tablet | 24h | 14 Mar, | | 30 | Active | | [...] + + + + + +--------+ RESULTS + +--------+ + + | Name | Result | Date | Reference Range | + +--------+ + + | TSH | | 2017-04-02 | | + +--------+ + + | TSH | | | | + +--------+ + + | Lipid Panel | | 2017-04-02 | | + +--------+ + + | Cholesterol, Total | | | | + +--------+ + + | Triglycerides | | | | + +--------+ + + | HDL Cholesterol | | | | + +--------+ + + | VLDL Cholesterol | | | | | Magdi | | | | + +--------+ + + | LDL Cholesterol | | | | | Calc | | | | + +--------+ + + | Urinalysis, | | 2017-04-02 | | | w/Culture Reflex | | | | + +--------+ + + | Collection Type | | | | + +--------+ + + | Color | | | | + +--------+ + + | Clarity | | | | + +--------+ + + | Specific [facility] | | | | + +--------+ + + | PH | | | | + +--------+ + + | Protein | | | | + +--------+ + + | Glucose | | | | + +--------+ + + | Ketone | | | | + +--------+ + + | Bilirubin | | | | + +--------+ + + | Blood/HGB | | | | + +--------+ + + | Nitrite | | | | + +--------+ + + | Urobilinogen | | | | + +--------+ + + | Leuk Esterase | | | | + +--------+ + + | Casts | | | | + +--------+ + + | WBC'S | | | | + +--------+ + + | RBC'S | | | | + +--------+ + + | Epithelial | | | | + +--------+ + + | Crystals | | | | + +--------+ + + | Bacteria | | | | + +--------+ + + | Comprehensive | | 2017-04-02 | | | Metabolic Panel | | | | + +--------+ + + | CBC with | | 2017-04-02 | | | Differential Count | | | | + +--------+ + + PROCEDURES + + + + + | Procedure | Date Ordered | Related Diagnosis | Body Site | + + + + + | Est Level IV | April 02, 2017 | | | | Extended | | | | + + + + + | DSCHRG MED/CURRENT | April 02, 2017 | | | | MED MERGE | | | | + + + + + | INJECTION | April 02, 2017 | | | | INTRAMUSCULAR OR | | | | | SUBCUTANEOUS | | | | + + + + + | PNEUMOCOCCAL VACC, | April 02, 2017 | | | | 13 FELIPE IM | | | | + + + + + IMMUNIZATIONS + + + + + | Vaccine | Route | Administration Date | Status | + + + + + | Prevnar 13 | IM Intramuscular | April 02, 2017 | Administered | + + + + +"
--- OUTSIDE RECORDS SUMMARY | ~2018-06-07 | XMS | Encounter Summary ---
Demographics + + + | Address | [address] | | | [place] [address] | + + + | Home Phone | | + + + | Preferred Language | Unknown | + + + | Marital Status | | + + + | Yazidism Affiliation | Unknown | + + + | Race | Unknown | + + + | Ethnic Group | Unknown | + + + Author + + + | Author | [facility] | | | and [place] | + + + | Organization | [facility] | | | and [place] | [...] Team Providers + +------+ + | Care Floating Derrick Operator Name | Role | Phone | [...] [address] | | | | [address] [place], | [address] | | | | | [place] [address] | [place] [address] | | | | | [phone] | [phone] | | | | | | | [...]
--- OUTSIDE RECORDS SUMMARY | ~2018-06-07 | XMS | Encounter Summary ---
Demographics + + + | Address | [address] | | | [place] [address] | + + + | Home Phone | | + + + | Preferred Language | Unknown | + + + | Marital Status | Unknown | + + + | Mormonism Affiliation | Unknown | + + + | Race | Unknown | + + + | Ethnic Group | Unknown | + + + Author + + + | Author | [facility] | + + + | Organization | [facility] | + + + | Address | [...] Team Providers + +------+ + | Care Decontamination Worker Name | Role | Phone | + +------+ + | William Satrr MD | PCP | | + +------+ + Reason for Visit + + + | Reason | Comments | + + + | Care Coordination | IV Denisse-Jes (3 day course) | + + + Encounter Details +--------+ + + + + | Date | Type | Department | Care Team | Description | +--------+ + + + + | 04/03/ | Telephone | [facility] | [place] Helms, | Care Coordination | | 2018 | | [facility] | STOCKROOM KEEPER | (IV Solu-Medrol (3 | | | | [address] | | day course)) | | | | [place] | | | | | | [address] | | | | | | [phone] | | | +--------+ + + + [...] Mart | | | | | | [id number] | | | | | | | | +--------+---------+ + + + as of this encounter Visit Diagnoses Not on filein this encounter"
--- OUTSIDE RECORDS SUMMARY | ~2018-06-07 | XMS | Encounter Summary ---
Demographics + + + | Address | [address] | | | [place] [address] | + + + | Home Phone | | + + + | Preferred Language | Unknown | + + + | Marital Status | Unknown | + + + | Muslim Affiliation | Unknown | + + + | Race | Unknown | + + + | Ethnic Group | Unknown | + + + Author + + + | Author | [facility] | + + + | Organization | [facility] | + + + | Address | [...] Team Providers + +------+ + | Care Cosmetics Counter Manager Name | Role | Phone | [...] + + | 06/02/ | Ancillary | [facility] | See, Medical | Pain | | 2018 | [facility] | Record | | | | | [address] | | | | | | [place] [address] | | | | | | [phone] | | | +--------+ + + + [...] | | | | | | [place], [place] | | | | | | [address] | | | | | | | [...] | + + + + + | [facility] | [address] | [place] [address] | | + + + + + in this encounter Visit Diagnoses + + | Diagnosis | + + | Pain | + + | Generalized pain | + +"
--- OUTSIDE RECORDS SUMMARY | ~2018-06-07 | XMS | Encounter Summary ---
Demographics + + + | Address | [address] | | | [place] [address] | + + + | Home Phone | | + + + | Preferred Language | Unknown | + + + | Marital Status | Unknown | + + + | Islam Affiliation | Unknown | + + + | Race | Unknown | + + + | Ethnic Group | Unknown | + + + Author + + + | Author | [facility] | + + + | Organization | [facility] | + + + | Address | [...] Team Providers + +------+ + | Care Resident Care Aide Name | Role | Phone | + [...] | Requisition | [address] | Refiner Operator | ([facility]); Other fatigue | | | | [place] [address] | | | | | | [phone] | | | +--------+ + + + [...] 12/08/ | Office | Neurology | Robel Jonh, | | | 2019 | Visit | | MD Ben Dominguez | | | | | | [place], [place] | | | | | | [address] | | | | | | | [...] | | e | 3:21 PM | ([facility]) Other | procedure are in the | | | | PDT | fatigue | results section. | + +--------+ + + + | COMPREHENSIVE | Routin | 04/03/2018 | Multiple sclerosis | Results for this | | METABOLIC PANEL | e | 3:21 PM | ([facility]) Other | procedure are in the | [...] [facility] | [address] | [place] [address] | [phone] | | LABORATORY | Blvd. | | [...] [facility] | [address] | [place] [address] | [phone] | | LABORATORY | Blvd. | | [...] | + + + + + | [facility] | [address] | [place] [address] | [phone] | | LABORATORY | Blvd. | | [...] [facility] | [address] | [place] [address] | [phone] | | LABORATORY | Blvd. | | | + + + + + in this encounter Visit Diagnoses + + | Diagnosis | + + | Multiple sclerosis (HCC) | + + | Multiple sclerosis | + + | Other fatigue | + +"
--- OUTSIDE RECORDS SUMMARY | ~2018-06-07 | XMS | Encounter Summary ---
Demographics + + + | Address | [address] | | | [place] [address] | + + + | Home Phone | | + + + | Preferred Language | Unknown | + + + | Marital Status | Unknown | + + + | Presybeterian Affiliation | Unknown | + + + | Race | Unknown | + + + | Ethnic Group | Unknown | + + + Author + + + | Author | [facility] | + + + | Organization | [facility] | + + + | Address | [...] Team Providers + +------+ + | Care Sous Chef Name | Role | Phone | + +------+ + | William Starr MD | PCP | | + +------+ + Encounter Details +--------+ + + + + | Date | Type | Department | Care Team | Description | +--------+ + + + + | 06/02/ | Procedure | [facility] | | | | 2018 | Pass | [facility] | | | | | | RADIOLOGY [address] | | [address] | | | | | | [place] [address] | | | | | | [phone] | | | +--------+ + + + [...] | | | | | | [place] | | | | | | [address] | | | | | | | | +--------+---------+ + + + as of this encounter Visit Diagnoses Not on filein this encounter"
--- OUTSIDE RECORDS SUMMARY | ~2018-06-07 | XMS | Encounter Summary ---
Demographics + + + | Address | [address] | | | [place] [address] | + + + | Home Phone | | + + + | Preferred Language | Unknown | + + + | Marital Status | Unknown | + + + | Gnosticism Affiliation | Unknown | + + + | Race | Unknown | + + + | Ethnic Group | Unknown | + + + Author + + + | Author | [facility] | + + + | Organization | [facility] | + + + | Address | [...] Team Providers + +------+ + | Care Mutual Fund Manager Name | Role | Phone | [...] | 2018 | | [facility] | [employer] | (IV Solu-Medrol (3 | | | | [address] | | day course)) | | | | [place] | | | | | | [address] | | | | | | [phone] | | | +--------+ + + + [...] [place] | | | | | | [id number] | | | | | | | | +--------+---------+ + + + as of this encounter Visit Diagnoses Not on filein this encounter"
--- OUTSIDE RECORDS SUMMARY | ~2018-06-07 | XMS | Encounter Summary ---
Demographics + + + | Address | [address] | | | [place] [address] | + + + | Home Phone | | + + + | Preferred Language | Unknown | + + + | Marital Status | Unknown | + + + | Sikh Affiliation | Unknown | + + + | Race | Unknown | + + + | Ethnic Group | Unknown | + + + Author + + + | Author | [facility] | + + + | Organization | [facility] | + + + | Address | [...] Team Providers + +------+ + | Care Linux Admin Engineer Name | Role | Phone | [...] + + | 04/03/ | Clinical | [facility] | Aliza Hartmann, | Multiple sclerosis | | 2018 | Support | [facility] | RN | ([facility]) | | | | [address] | | | | | | [place] | | | | | | [address] | | | | | | [phone] | | | +--------+ + + + [...] Aliza Hartmann RN - 04/03/2018 1:45 PM [id number] Pt presents for IV Solu-Medrol infusion. Pt [...] a rate of 110 mL/hr utilizing an Appear IV pump. Primary solution is 100 mL [...] | | | | | | Drive [place], [place] | | | | | | [address] | | | | | | | [...]
--- OUTSIDE RECORDS SUMMARY | ~2018-06-07 | XMS | Encounter Summary ---
Demographics + + + | Address | [address] | | | [place] [address] | + + + | Home Phone | | + + + | Preferred Language | Unknown | + + + | Marital Status | Unknown | + + + | Confucianism Affiliation | Unknown | + + + | Race | Unknown | + + + | Ethnic Group | Unknown | + + + Author + + + | Author | [facility] | + + + | Organization | [facility] | + + + | Address | [...] Team Providers + +------+ + | Care Retail Pharmacy Technician Name | Role | Phone | + +------+ + | William Starr MD | PCP | | + +------+ + Encounter Details +--------+ + + + + | Date | Type | Department | Care Team | Description | +--------+ + + + + | 06/03/ | Telephone | [facility] | Elzbieta Malone, | | | 2017 | | [facility] | [place] | | | | | [address] | | | | | | [place], [place] | | | | | | [address] | | | | | | [phone] | | | +--------+ + + + [...] | | | | | | [place] | | | | | | [address] | | | | | | | | +--------+---------+ + + + as of this encounter Visit Diagnoses Not on filein this encounter"
--- OUTSIDE RECORDS SUMMARY | ~2018-06-07 | XMS | Encounter Summary ---
Demographics + + + | Address | [address] | | | [place] [address] | + + + | Home Phone | | + + + | Preferred Language | Unknown | + + + | Marital Status | Unknown | + + + | Anabaptist Affiliation | Unknown | + + + | Race | Unknown | + + + | Ethnic Group | Unknown | + + + Author + + + | Author | [facility] [employer] | + + + | Organization | [facility] [employer] | + + + | Address | [...] Team Providers + +------+ + | Care Tumbler Machine Operator Helper Name | Role | Phone | + +------+ + | William Starr MD | PCP | | + +------+ + Reason for Visit + + + | Reason | Comments | + + + | Follow-up | Multiple sclerosis (HCC) | + + + Consult and Treat [...] | | | | Phone: | Ben Dominguez | | | | | | [phone] | Drive | | | | | | Fax: | [place] | | | | | | [phone] | [address] Phone: | | | | | | | [phone] | | | | | | | Fax: | | | | | | | [phone] | + + + + + + + Encounter Details +--------+---------+ + + + | Date | Type | Department | Care Team | Description | +--------+---------+ + + + | 06/03/ | Office | [facility] | Robel John, | Multiple sclerosis | | 2018 | Visit | [facility] [place] | [address] | ([facility]) (Primary Dx); | | | | [address] | Drive [place], [place] | Other fatigue | | | | [place], [place] | [address] | | | | | [address] | | | | | | [phone] | | | +--------+---------+ + + + [...] encounter Progress Notes Robel John MD - 06/03/2018 9:15 AM PDTFormatting of this note may be [...] up visit for her multiple scler osis. Summary of history: The patient was diagnosed with multiple sclerosis [...] significant chronic fatigue. She has benefit from Provigil for her fatigue in the p ast, however her insurance denied coverage. She had more side effects with methylphenidate . 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 MRI studies: She had repeated MRI of the brain with gadolinium on 05/07/2018 which revealed stable mild l esion burden, no new lesions, no enhancement. I reviewed MRI studies and visualized multiple images with the patient and compared to her prior study in 06/2017. MRI of the brain and cervical spine dated on 01/27/09. She has abnormal signal at C2 area. O verall brain lesion burden is mild. Repeated MRI brain and cervical spine at [facility] 09/02/13 showed mild lesion b urden of her brain, no new or enhancing lesions. Her cervical spine MRI 09/02/13 reported no spinal cord lesion. Again noted C5 hemangioma, unchanged. Broad based disc bulge new at C5-6, causes mild steven tral canal narrowing. Minimal central disc bulge at C6-7 and C7-T1 with no evidence neural compromise. MRI cervical spine [facility] 08/19/15 showed stable multiple sclerosis lesion at C2 area (unchanged from prior studies). She has mild spondylosis with bulging disk at C5-6 with aravind y slight effacement of cord and left neural foramen mildly narrowed. The remainder is repor luis normal. MRI brain [facility] 08/2015 reported stable multiple sclerosis lesion burden without en hancement. Repeated MRI of the brain, cervical spine and thoracic spine on 06/27/2017 at [facility] were quite stable, no new lesions. She does have mild lesion burden in the brain and stable cervical cord lesion. She does have spondylosis reversal of normal cervical curvature. I reviewed MRI studies and visualized multiple images with the patient. Interval history: She had good response to a course of Solumedrol IV1 gm per day on 04/03/2018. She denies alonso e effects. She feels better overall. She continues to have fluctuation of fatigue but improved. She has normal vitamin B12 and T SH level. 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 She started walking on a regular basis with her , also started dietary modification. She will start generic Copaxone per insurance request. She had repeated MRI of the brain with gadolinium on 05/07/2018 which revealed stable mild l esion burden, no new lesions, no enhancement. I reviewed MRI studies and visualized multiple images with the patient and compared to her prior study in 06/2017. She complains of eye fatigue, denies vision change. GLUCOSE Date Value Ref Range Status 04/03/2018 95 65 - 99 mg/dL Final BUN Date Value Ref Range Status 04/03/2018 14 8 - 25 mg/dL Final CREATININE Date Value Ref Range Status 04/03/2018 1.0 0.50 - 1.00 mg/dL Final BUN/CREAT Date Value Ref Range Status 04/03/2018 14 Final TOTAL PROTEIN Date Value Ref Range Status 04/03/2018 7.5 6.3 - 8.2 g/dL Final GLOBULIN Date Value Ref Range Status 04/03/2018 3.6 1.3 - 4.9 g/dL Final TBIL Date Value Ref Range Status 04/03/2018 0.4 0.1 - 1.5 mg/dL Final ALT Date Value Ref Range Status 04/03/2018 33 10 - 65 U/L Final AST Date Value Ref Range Status 04/03/2018 23 10 - 45 U/L Final SODIUM Date Value Ref Range Status 04/03/2018 141 135 - 145 mmol/L Final POTASSIUM Date Value Ref Range Status 04/03/2018 4.6 3.5 - 4.9 mmol/L Final CHLORIDE Date Value Ref Range Status 04/03/2018 106 99 - 109 mmol/L Final CO2 Date Value Ref Range Status 04/03/2018 25 23 - 32 mmol/L Final ANION GAP AGAP Date Value Ref Range Status 04/03/2018 15 5 - 20 mmol/L Final Lab Results Component Value Date ALP 77 04/03/2018 ALP 71 07/08/2017 Lab Results Component Value Date AST 23 04/03/2018 AST 20 07/08/2017 Lab Results Component Value Date ALT 33 04/03/2018 ALT 28 07/08/2017 Normal TSH, B12 level. The following portions of the patient's history [...] CN II Visual acuity: normal with correction (20/20 OU with correction) Right visual field deficit: [...] well-nourished. HENT: Head: Normocephalic and atraumatic. Eyes: Pupils are equal, round, and reactive to light. EOM are normal. Neck: Normal range of motion. Neck supple. Musculoskeletal: Slightly limited neck turning to the left due to pain Neurological: She is oriented to person, place, and time. She has an abnormal Tandem Gait T est. Gait normal. Skin: Skin is warm. Psychiatric: She has a normal mood and affect. Her behavior is normal. Judgment and thought content normal. Vitals reviewed. Assessment and Plan: Daisy is a pleasant 48 yo woman with relapsing-remitting multiple sclerosis [facility] with mild disease burden but with involvement of cervical spinal cord. She has been on Copaxone 40 mg three times per week for disease modifying agent for multiple sclerosis. Overall her multiple sclerosis has been stable on Copaxone with periodic fluctuation of her symptoms. Brain MRI 08/30/15 showed stable mild lesion burden of brain. Cervical spine MRI 08/19/15 s howed a subtle abnormal signal at C2 area, stable to prior exams. No enhancing lesions. Repeated MRI of the brain, cervical spine and thoracic spine on 06/27/2017 at [facility] were quite stable, no new lesions. She does have mild lesion burden in the brain and stable cervical cord lesion. She does have spondylosis reversal of normal cervical curvature. She had repeated MRI of the brain with gadolinium on 05/07/2018 which revealed stable mild l esion burden, no new lesions, no enhancement. I reviewed MRI studies and visualized multiple images She reports fluctuation of fatigue but no clear focal neurological changes. She will start regular exercise and dietary change. Recommendations: 1. Continue Copaxone (will change to generic Copaxone and request assistant portfolio manager program). 2. Continue vitamin D supplement. 3. Exercise as tolerating. 4. Refer to retention representative for evaluation of her complaints of vision change and eye fatig ue. I spent more than 50% of this visit counseling the patient about the clinical course of angus oing neurological symptoms and answering a number of questions, the patient expressed unders tanding and would like to proceed with the recommendations. Return to the clinic in 6 months, call for any new neurological changes or symptoms or que stions. in this encounter Plan of Treatment +--------+---------+ + + + | Date | Type | Specialty | Care Team | Description | +--------+---------+ + + + | 12/08/ | Office | Neurology | Robel John, | | | 2019 | Visit | | MD Ben Dominguez | | | | | | [place], [place] | | | | | | [phone] | | | | | | | | +--------+---------+ + + + as of this encounter Visit Diagnoses + + | Diagnosis | + + | Multiple sclerosis (HCC) - Primary | + + | Multiple sclerosis | + + | Other fatigue | + +
--- OUTSIDE RECORDS SUMMARY | ~2018-06-07 | XMS | Encounter Summary ---
Demographics + + + | Address | [address] | | | [place] [address] | + + + | Home Phone | | + + + | Preferred Language | Unknown | + + + | Marital Status | Unknown | + + + | Church Affiliation | Unknown | + + + | Race | Unknown | + + + | Ethnic Group | Unknown | + + + Author + + + | Author | [facility] | + + + | Organization | [facility] | + + + | Address | [...] Team Providers + +------+ + | Care Fur Weigher Name | Role | Phone | + +------+ + | William Starr MD | PCP | | + +------+ + Encounter Details +--------+ + + + + | Date | Type | Department | Care Team | Description | +--------+ + + + + | 06/03/ | Telephone | [facility] | Elzbieta Malone, | | | 2017 | | [facility] | [place] | | | | | [address] | | | | | | [place], [place] | | | | | | [address] | | | | | | [phone] | | | +--------+ + + + [...] | | | | | | [place] | | | | | | [address] | | | | | | | | +--------+---------+ + + + as of this encounter Visit Diagnoses Not on filein this encounter"
--- OUTSIDE RECORDS SUMMARY | ~2018-06-07 | XMS | Encounter Summary ---
Demographics + + + | Address | [address] | | | [place] [address] | + + + | Home Phone | | + + + | Preferred Language | Unknown | + + + | Marital Status | Unknown | + + + | Yarsani Affiliation | Unknown | + + + | Race | Unknown | + + + | Ethnic Group | Unknown | + + + Author + + + | Author | [facility] [employer] [facility] | + + + | Organization | [facility] | + + + | Address | [...] Team Providers + +------+ + | Care Hydropulper Operator Name | Role | Phone | + +------+ + | William Starr MD | PCP | | + +------+ + Reason for Visit +--------+ + | Reason | Comments | +--------+ + | Other | patient enrollment form [employer] injection faxed | | | successfully | +--------+ + Encounter Details +--------+ + + + + | Date | Type | Department | Care Team | Description | +--------+ + + + + | 06/03/ | Documentati | [facility] | Elzbieta Malone, | Other (patient | | 2018 | on Only | [facility] | [place] | enrollment form | | | | [address] | | [employer] | | | | [place], [place] | | injection faxed | | | | [address] | | successfully) | | | | [phone] | | | +--------+ + + + [...] + + + as of this encounter Progress Notes Elzbieta Malone MA - 06/03/2018 10:43 AM PDTPatient enrollment form [employer] i njection faxed successfully today.in this encounter Plan of Treatment +--------+---------+ + + + | Date | Type | Specialty | Care Team | Description | +--------+---------+ + + + | 12/08/ | Office | Neurology | Robel John, | | | 2018 | Visit | | MD Ben Dominguez | | | | | | [place] | | | | | | [phone] | | | | | | | | +--------+---------+ + + + as of this encounter Visit Diagnoses Not on filein this encounter"
--- OUTSIDE RECORDS SUMMARY | ~2018-06-07 | XMS | Encounter Summary ---
Demographics + + + | Address | [address] | | | [place] [address] | + + + | Home Phone | | + + + | Preferred Language | Unknown | + + + | Marital Status | Unknown | + + + | Congregational Affiliation | Unknown | + + + | Race | Unknown | + + + | Ethnic Group | Unknown | + + + Author + + + | Author | [facility] | + + + | Organization | [facility] | + + + | Address [...] Team Providers + +------+ + | Care Armature Tester Name | Role | Phone | + [...] [place] | | | | | | [phone] | Drive | | | | | | Fax: | [place] | | | | | | [phone] | [address] Phone: | | | | | | | [phone] | | | | | | | Fax: | | | | | | | [phone] | + + + + + + + Encounter Details +--------+---------+ + + + | Date | Type | Department | Care Team | Description | +--------+---------+ + + + | 06/03/ | Office | [facility] | Robel John, | Multiple sclerosis | | 2018 | Visit | Neuroscience [facility] | [address] | ([facility]) (Primary Dx); | | | | [address] | Drive [place], [place] | Other fatigue | | | | [place], [place] | [address] | | | | | [address] | | | | | | [phone] | | | +--------+---------+ + + + [...] with methylphenidate . 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 MRI studies: She had repeated MRI [...] Repeated MRI brain and cervical spine at [facility] 09/02/13 showed mild lesion b urden of her brain, no new or enhancing lesions. Her cervical spine MRI 09/02/13 reported no spinal cord lesion. Again noted C5 hemangioma, unchanged. Broad based disc bulge new at C5-6, causes mild steven tral canal narrowing. Minimal central disc bulge at C6-7 and C7-T1 with no evidence neural compromise. MRI cervical spine [facility] 08/19/15 showed stable multiple sclerosis lesion at C2 area (unchanged from prior studies). She has mild spondylosis with bulging disk at C5-6 with aravind y slight effacement of cord and left neural foramen mildly narrowed. The remainder is repor luis normal. MRI brain [facility] 08/2015 reported stable multiple sclerosis lesion burden without en hancement. Repeated MRI of the brain, cervical spine and thoracic spine on 06/27/2017 at [facility] were quite stable, no new lesions. She [...] SH level. 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 She started walking on a regular basis [...] woman with relapsing-remitting multiple sclerosis diagnosed in [facility] with mild disease burden but with involvement [...] spine and thoracic spine on 06/27/2017 at [facility] were quite stable, no new lesions. She [...] change to generic Copaxone and request assistant golf coach program). 2. Continue vitamin D supplement. 3. Exercise as tolerating. 4. Refer to hat parts cutter machine for evaluation of her complaints of vision [...] | | | | | | [place], [place] | | | | | | [phone] | | | | | | | | +--------+---------+ + + + as of this encounter Visit Diagnoses + + | Diagnosis | + + | Multiple sclerosis (HCC) - Primary | + + | Multiple sclerosis | + + | Other fatigue | + +
--- OUTSIDE RECORDS SUMMARY | ~2018-06-07 | XMS | Clinical Summary ---
Demographics + + + | Address | [address] | | | [place] [address] | + + + | Home Phone | | + + + | Preferred Language | Unknown | + + + | Marital Status | Unknown | + + + | Confucianist Affiliation | Unknown | + + + | Race | Unknown | + + + | Ethnic Group | Unknown | + + + Author + + + | Author | [facility] | + + + | Organization | [facility] | + + + | Address | [...] Team Providers + +------+ + | Care Mailing Specialist Name | Role | Phone | [...] | | | | | | | ([facility]) | FREEZE | | | | | [...] | 06/03/ | Office | | Robel John, | [...] 2018 | Support | | RN | ([facility]) | +--------+ + + + + | 04/03/ | Office | | Robel John, | Multiple sclerosis | | 2017 | Visit | | MD | ([facility]) (Primary Dx); | | | | | | Other fatigue | +--------+ + + + + | 04/03/ | Lab | | Trevor Santos, | Multiple sclerosis | | 2017 | Requisition | | Bulk Gas Specialist | ([facility]); Other fatigue | +--------+ + + + + | 04/03/ | Telephone | | Argentina Helms, | Care Coordination | | 2017 | | | LOADING DOCK HELPER | (IV Solu-Medrol (3 | | | [...] | | | | | | [place] | | | | | | [id number] | | | | | | | [...] | | e | 3:21 PM | ([facility]) Other | procedure are in the | | | | PDT | fatigue | results section. | + +--------+ + + + | COMPREHENSIVE | Routin | 04/03/2018 | Multiple sclerosis | Results for this | | METABOLIC PANEL | e | 3:21 PM | ([facility]) Other | procedure are in the | | | | PDT | fatigue | results section. | + +--------+ + + + | CBC W/AUTO DIFF | Routin | 04/03/2018 | Multiple sclerosis | Results for this | | (REFLEX TO MANUAL) | e | 3:21 PM | ([facility]) Other | procedure are in [...] [facility] | [address] | [place] [address] | | + + + + + [...] + + + + | [facility] | [address] | [place] [address] | [phone] | | LABORATORY | Blvd. | | [...] + + + + | [facility] | [address] | [place] [address] | [phone] | | LABORATORY | Blvd. | | [...] | + + + + + | [facility] | [address] | [place] [address] | [phone] | | LABORATORY | Blvd. | | | + + + + + Comprehensive metabolic panel (04/03/2018 3:21 PM) + + + + + | Component | Value | Ref Range | Performed At | + + + + + | SODIUM | 141 | 135 - 145 mmol/L | [facility] | | | | | LABORATORY | [...] + + + | [facility] | [address] | [place] [address] | [phone] | | LABORATORY | Blvd. | | [...] | [place] | | | [address] | [phone] | + +--------+ +--------+ + +
--- OUTSIDE RECORDS SUMMARY | ~2018-06-07 | XMS | Encounter Summary ---
Demographics + + + | Address | [address] | | | [place] [address] | + + + | Home Phone | | + + + | Preferred Language | Unknown | + + + | Marital Status | Unknown | + + + | Rastafarian Affiliation | Unknown | + + + | Race | Unknown | + + + | Ethnic Group | Unknown | + + + Author + + + | Author | [facility] | + + + | Organization | [facility] | + + + | Address | [...] Team Providers + +------+ + | Care Eclectic Doctor Name | Role | Phone | + [...] + + | 06/02/ | Hospital | [facility] | See, Medical | Pain | | 2018 | Encounter | [facility] | Record | | | | | RADIOLOGY [address] | | | | | | [address] | | | | | | [place] [address] | | | | | | [phone] | | | +--------+ + + + [...] NOT | | | | | | ([facility]) | FREEZE | | | [...] | | | | | | [place] | | | | | | [address] | | | | | | | [...] | + + + + + | [facility] | [address] | [place] [address] | | + + + + + in this encounter Visit Diagnoses + + | Diagnosis | + + | Pain | + + | Generalized pain | + +"
--- OUTSIDE RECORDS SUMMARY | ~2018-06-07 | XMS | Encounter Summary ---
Demographics + + + | Address | [address] | | | [place] [address] | + + + | Home Phone | | + + + | Preferred Language | Unknown | + + + | Marital Status | Unknown | + + + | Adventism Affiliation | Unknown | + + + | Race | Unknown | + + + | Ethnic Group | Unknown | + + + Author + + + | Author | [facility] | + + + | Organization | [facility] | + + + | Address | [...] Team Providers + +------+ + | Care Granulizing Machine Operator Name | Role | Phone | + +------+ + | William Starr MD | PCP | | + +------+ + Reason for Visit +--------+ + | Reason | Comments | +--------+ + | Other | [facility] MRI report DOS 05/07/18 | +--------+ + Encounter Details +--------+ + + + + | Date | Type | Department | Care Team | Description | +--------+ + + + + | 06/03/ | Documentati | Jerry | Elzbieta Malone, | Other ([facility] | | 2018 | on Only | [facility] | [facility] MRI report | | | | [address] | | DOS 05/07/18) | | | | [place] | | | | | | [address] | | | | | | [phone] | | | +--------+ + + + [...] [place] | | | | | | [address] | | | | | | | | +--------+---------+ + + + as of this encounter Visit Diagnoses Not on filein this encounter"
--- OUTSIDE RECORDS SUMMARY | ~2018-06-07 | XMS | Encounter Summary ---
Demographics + + + | Address | [address] | | | [place] [address] | + + + | Home Phone | | + + + | Preferred Language | Unknown | + + + | Marital Status | Unknown | + + + | Jainism Affiliation | Unknown | + + + | Race | Unknown | + + + | Ethnic Group | Unknown | + + + Author + + + | Author | [facility] | + + + | Organization | [facility] | + + + | Address | [...] Team Providers + +------+ + | Care Air Brakes Inspector Name | Role | Phone | + +------+ + | William Starr MD | PCP | | + +------+ + Encounter Details +--------+ + + + + | Date | Type | Department | Care Team | Description | +--------+ + + + + | 05/02/ | Telephone | [facility] | Faizan Dimple | | | 2017 | | [facility] | [address] | | | | | [address] | | | | | | [place], [place] | | | | | | [address] | | | | | | [phone] | | | +--------+ + + + [...] | | | | | | [place] | | | | | | [address] | | | | | | | | +--------+---------+ + + + as of this encounter Visit Diagnoses Not on filein this encounter"
--- OUTSIDE RECORDS SUMMARY | ~2018-06-07 | XMS | Encounter Summary ---
Demographics + + + | Address | [address] | | | [place] [address] | + + + | Home Phone | | + + + | Preferred Language | Unknown | + + + | Marital Status | Unknown | + + + | Yarsani Affiliation | Unknown | + + + | Race | Unknown | + + + | Ethnic Group | Unknown | + + + Author + + + | Author | [facility] | + + + | Organization | [facility] | + + + | Address | [...] Team Providers + +------+ + | Care Asphalt Paver Operator Name | Role | Phone | + +------+ + | William Starr MD | PCP | | + +------+ + Encounter Details +--------+ + + + + | Date | Type | Department | Care Team | Description | +--------+ + + + + | 04/28/ | Telephone | [facility] | Faizan Dimple | | | 2017 | | [facility] | [place] [place] | | | | | [address] | | | | | | [place], [place] | | | | | | [address] | | | | | | [phone] | | | +--------+ + + + [...] | | | | | | [place] | | | | | | [address] | | | | | | | | +--------+---------+ + + + as of this encounter Visit Diagnoses Not on filein this encounter"
--- OUTSIDE RECORDS SUMMARY | ~2018-06-07 | XMS | Encounter Summary ---
Demographics + + + | Address | [address] | | | [place] [address] | + + + | Home Phone | | + + + | Preferred Language | Unknown | + + + | Marital Status | Unknown | + + + | Restoration Affiliation | Unknown | + + + | Race | Unknown | + + + | Ethnic Group | Unknown | + + + Author + + + | Author | [facility] | + + + | Organization | [facility] | + + + | Address | [...] Team Providers + +------+ + | Care Summer Sessions Director Name | Role | Phone | + +------+ + | William Starr MD | PCP | | + +------+ + Encounter Details +--------+ + + + + | Date | Type | Department | Care Team | Description | +--------+ + + + + | 05/02/ | Telephone | [facility] | Faizan Dimple | | | 2017 | | [facility] | [address] [place] | | | | | [address] | | | | | | [place], [place] | | | | | | [address] | | | | | | [phone] | | | +--------+ + + + [...] | | | | | | [place] | | | | | | [address] | | | | | | | | +--------+---------+ + + + as of this encounter Visit Diagnoses Not on filein this encounter"
--- OUTSIDE RECORDS SUMMARY | ~2018-06-07 | XMS | Encounter Summary ---
Demographics + + + | Address | [address] | | | [place] [address] | + + + | Home Phone | | + + + | Preferred Language | Unknown | + + + | Marital Status | Unknown | + + + | Confucianism Affiliation | Unknown | + + + | Race | Unknown | + + + | Ethnic Group | Unknown | + + + Author + + + | Author | [facility] | + + + | Organization | [facility] | + + + | Address | [...] Team Providers + +------+ + | Care Sports Attorney Name | Role | Phone | + [...] form | | | | [address] | | [employer] | | | | [place], [place] | | injection faxed | | | | [phone] | | successfully) | | | | [phone] | | | +--------+ + + + [...] | | | | | | [place] | | | | | | [phone] | | | | | | | | +--------+---------+ + + + as of this encounter Visit Diagnoses Not on filein this encounter"
[~2018-06-07 20:45] MED LIST: AMANTADINE100 MG PO; CELECOXIB100 MG PO; COPAXONE40 MG/1 ML SUB-Q; DULOXETINE HCL60 MG PO; OMEPRAZOLE20 MG PO; SIMVASTATIN20 MG PO; ZANAFLEX4 MG PO; ZOFRAN ODT4 MG PO
[2018-06-07] MEDS ORDERED: SYNTHROID25 MCG PO (21:03)
[2018-06-07] MEDS ORDERED: ZOFRAN ODT4 MG PO (22:10)
== END 2018-06-07 22:25 | disposition home or self-care (01) ==
LOC: ED 20:45
DX: G35 Multiple sclerosis (principal); E78.00 Pure hypercholesterolemia, unspecified; E66.9 Obesity, unspecified; Z88.5 Allergy status to narcotic agent; Z88.8 Allergy status to other drugs, medicaments and biological substances; Z79.899 Other long term (current) drug therapy
CPT/HCPCS: 80053; 81001; 85025; 96361; 96374; 99284; J2405; J7030

== ENCOUNTER 2020-08-04 08:36 | Emergency (ER) | payer OTHER ==
[~2020-08-04] VITALS: Ht 165.1 cm; Wt 99.8 kg
[~2020-08-04 08:36] MED LIST changes: +SYNTHROID25 MCG PO
[2020-08-04] MEDS ORDERED: COPAXONE40 MG/1 ML SUB-Q (08:52)
[2020-08-04] MEDS ORDERED: TRAZODONE HCL50 MG PO (08:52)
[2020-08-04] MEDS ORDERED: METOPROLOL SUCC25 MG PO (08:53)
[2020-08-04] MEDS ORDERED: METHOCARBAMOL750 MG PO (08:54)
== END 2020-08-04 20:53 | disposition home or self-care (01) ==
LOC: ED 08:36
DX: R51.9 Headache, unspecified (principal); M54.2 Cervicalgia; R11.0 Nausea; E78.00 Pure hypercholesterolemia, unspecified; Z88.8 Allergy status to other drugs, medicaments and biological substances; Z88.5 Allergy status to narcotic agent; Z79.899 Other long term (current) drug therapy
CPT/HCPCS: 36415; 70496; 70498; 70553; 80053; 85025; 99284-25; A9577; J1885; J2405; J7030; Q9967

== ENCOUNTER 2023-08-23 14:57 | Emergency (ER) | payer OTHER ==
[~2023-08-23] VITALS: Ht 165.1 cm; Wt 102.7 kg
[~2023-08-23 14:57] MED LIST changes: +METHOCARBAMOL750 MG PO; +METOPROLOL SUCC25 MG PO; +TRAZODONE HCL50 MG PO
[2023-08-23] MEDS ORDERED: CELECOXIB100 MG PO (15:11)
[2023-08-23 15:15] LABS: BASOPHILS 1.1 % (0-2); HEMATOCRIT 39.7 % (35.0-50.0); HEMOGLOBIN 13.3 g/dL (12.0-18.0); MCH 29.2 (27-36); MCHC 33.6 g/dl (30-36); MCV 87.1 fl (81-99); MONOCYTES 6.6 % (0-12); NEUTROPHILS 47.3 % (39-80); PLATELET COUNT 224 K/uL (140-440); RBC 4.56 M/ul (4.3-5.7)
[2023-08-23 15:29] LABS: ALBUMIN 3.8 g/dL (3.4-5.0); ALKALINE PHOSPHATASE 103 U/L (46-116); ALT (SGPT) 36 U/L (14-59); ANION GAP 9.6 (7-21); AST (SGOT) 33 U/L (15-37); BILIRUBIN, TOTAL 0.3 ng/dL (0.2-1.0); BUN/CREATININE RATIO 19.35 (6.0-28.6); CALCIUM 8.6 mg/dL (8.5-10.1); CARBON DIOXIDE 29 mmol/L (21-32); CHLORIDE 103 mmol/L (98-107); CREATININE, SERUM 0.93 mg/dL (0.55-1.02); GLOMERULAR FILTRATION RATE,EST 73 mL/min (>60); MAGNESIUM 2.2 mg/dL (1.8-2.4); POTASSIUM 3.6 mmol/L (3.5-5.1); PROTEIN, TOTAL 7.6 g/dL (6.4-8.2); UREA NITROGEN 18 mg/dL (7-18)
[2023-08-23 17:47] VITALS: BP 149/82
--- NOTE | 2023-08-23 19:45 | EKG ---
[facility] [address] [place], [place] [address] Signed Normal sinus rhythm with sinus arrhythmia Normal ECG No previous ECGs available Confirmed by REYNOLD CRAVEN MD ([id number]) on 08/23/2023 7:45:31 PM Electronically Signed By: REYNOLD CRAVEN 08/23/23 194 PATIENT NAME: YNES MOJICA Electrocardiogram DATE OF : 66 PHYSICIAN: REYNOLD CRAVEN REPORT #: [id number] REPORT IS CONFIDENTIAL AND NOT TO BE RELEASED WITHOUT AUTHORIZATION
== END 2023-08-23 17:48 | disposition home or self-care (01) ==
LOC: ED 14:57
PROVIDERS: Emergency Medicine
DX: R07.9 Chest pain, unspecified (principal); I10 Essential (primary) hypertension; Z88.5 Allergy status to narcotic agent; Z88.8 Allergy status to other drugs, medicaments and biological substances; Z79.899 Other long term (current) drug therapy; Z79.890 Hormone replacement therapy
CPT/HCPCS: 36415; 71045; 71275; 74174; 80053; 83735; 84484; 85025; 93005; 93010; 99285-25; Q9967